=== PATIENT | female | born 1940 | race Caucasian/White ===

== ENCOUNTER → 2017-10-19 | Outpatient (CLI) | payer MEDICARE ==
--- NOTE | 2017-10-19 09:07 | BD ---
EXAMINATION TYPE: Axial Bone Density DATE OF EXAM: 10/19/2017 COMPARISON: DEXA bone scan December 06, 2013 CLINICAL HISTORY: Postmenopausal female Height: 5 FT 10 IN Weight: 214 FRAX RISK QUESTIONS: Family History (Parent hip fracture): YES History of Fracture in Adulthood: YES Secondary Osteoporosis: RISK FACTORS HISTORY OF: Active: YES Postmenopausal woman: AGE 53 Lost more than 2 inches in height since high school: YES MEDICATIONS: Additional Medications: VITAMINS, VIT D , CALTRATE, AMLODIPINE BESYLATE, LOSARTAN, TENORMIN, Additional History: EXAM MEASUREMENTS: Bone mineral densitometry was performed using the [employer]. Bone mineral density as measured about the Lumbar spine is: ----- L1-L4(G/cm2): 1.153 T Score Values are as follows: ----- L2: 0.2 ----- L3: 0.4 ----- L4: -0.9 ----- L1-L4: -0.2 Bone mineral density has: INCREASED 0.5 % since study of: 2013 Bone mineral density about the R hip (g/cm2): 0.644 Bone mineral density about the L hip (g/cm2): 0.716 T Score values are as follows: -----R Neck: -2.8 -----L Neck: -2.3 -----R Total: -2.2 -----L Total: -1.4 Bone mineral density has: DECREASED-3.2 % since study of: 2013 IMPRESSION: Osteoporosis (T Score less than -2.5) at the Femoral neck level in the right hip is now present. There is now increased fracture risk and therapy is usually indicated based on age. Re-Screen 1-2 years. NOTE: T-SCORE=SD OF THE YOUNG ADULT MEAN.
--- NOTE | 2017-10-21 11:38 | MM ---
Reason for exam: screening (asymptomatic). Last mammogram was performed 1 year and 7 months ago. History: Patient is postmenopausal. Physical Findings: A clinical breast exam by your physician is recommended on an annual basis and results should be correlated with mammographic findings. MG 3D Screening Mammo W/Cad Bilateral CC and MLO view(s) were taken. XCCL view(s) were taken of the right breast. Prior study comparison: March 12, 2016, bilateral MG 3d screening mammo w/cad. December 06, 2013, bilateral MG screening mammo w CAD. There are scattered fibroglandular densities. Finding: There is a high density, obscured oval mass in the middle position of the right breast consistent with summation density, confirm with compression. Mole marker left breast. New finding since March 12, 2016 and December 06, 2013. ASSESSMENT: Incomplete: need additional imaging evaluation, BI-RAD 0 RECOMMENDATION: Special view mammogram of the right breast. If lesion persists on supplemental views, image directed ultrasound is recommended. [facility] will attempt to contact patient to return for supplemental views and ultrasound if indicated.
== END | disposition home or self-care (01) ==
LOC: RADMAMWWP 07:21
PROVIDERS: ATTEND Internal Medicine
DX: Z12.31 Encounter for screening mammogram for malignant neoplasm of breast (principal); M81.0 Age-related osteoporosis without current pathological fracture; Z78.0 Asymptomatic menopausal state
CPT/HCPCS: 77063; 77067; 77080

== ENCOUNTER → 2017-10-28 | Outpatient (CLI) | payer MEDICARE ==
--- NOTE | 2017-10-28 09:19 | MM ---
Reason for exam: additional evaluation requested from abnormal screening. Last mammogram was performed less than 1 month ago. History: Patient is postmenopausal. Physical Findings: Nurse did not find any significant physical abnormalities on exam. MG 3D Work Up W/Cad RT CC, MLO, and ML view(s) were taken of the right breast. Prior study comparison: October 19, 2017, bilateral MG 3d screening mammo w/cad. March 12, 2016, bilateral MG 3d screening mammo w/cad. There are scattered fibroglandular densities. There is no discrete abnormality including area of concern. These results were verbally communicated with the patient and result sheet given to the patient on 10/28/17. ASSESSMENT: Probably benign, BI-RAD 3 RECOMMENDATION: Follow-up diagnostic mammogram of the right breast in 6 months.
== END | disposition home or self-care (01) ==
LOC: RADMAMWWP 08:45
PROVIDERS: ATTEND Internal Medicine
DX: R92.8 Other abnormal and inconclusive findings on diagnostic imaging of breast (principal)
CPT/HCPCS: 77065; G0279; 77061

== ENCOUNTER 2018-03-23 11:46 | Emergency (ER) | payer MEDICARE ==
[2018-03-23 11:57] VITALS: RESP 18
[2018-03-23] MEDS ORDERED: LIDOCAINE 1% INJ 10MG/ML (20 ML MDV) SQ ONE (12:47)
[2018-03-23] MEDS ORDERED: DIPH,PERTUS(ACELL)TETVAC-LF 0.5 ML VIAL IM ONE (12:48)
--- NOTE | 2018-03-23 13:36 | ED ---
Wound/Laceration HPI - General Chief Complaint: Wound/Laceration Stated Complaint: Fall, bleeding on face Time Seen by Provider: 03/23/18 12:24 Source: patient Mode of arrival: ambulatory Limitations: no limitations - History of Present Illness Initial Comments: 77-year-old female with past medical history of hypertension presenting today for chief complaint of fall. Patient states that 11:30AM this morning she left the [employer] store when the [employer] elvira had left his list down from unloading packages, she states she thought she cleared the left however her toe caught the end of it and she fell forward landing mostly on her face, she states she did brace to fall somewhat with her arms. Patient states that the outside of her nose was bleeding, she denies having a nosebleed from the nares or coughing up blood. Patient denies any loss of consciousness, injury to chest or back, use of blood thinners or neck pain. Patient denies any current pain in the upper extremities at the wrist elbow or shoulder, pain of LE b/l, headache, diplopia, visual changes, vision loss, muscle weakness, paresthesias, loss sensation, T abnormalities or any other associated symptoms this time. Patient does state her nose feels appear swollen, and there is a small laceration on the bridge. Patient is not sure last tetanus. Patient denies any chest pain, shortness breath, dizziness, palpitations prior to falling stating it was mechanical in nature, positive her toe caught the ledge of the ramp. Remainder of ROS (-). Upon arrival pt is well appearing, ambulating without difficulty. VS within acceptable limits. - Related Data Home Medications Medication Instructions Recorded Confirmed Atenolol [Tenormin] 50 mg PO DAILY 06/15/14 03/23/18 Calcium Carbonate/Vitamin D3 1 tab PO BID 06/15/14 03/23/18 [Caltrate 600 + D Tablet] Multivit-Minerals/Folic Acid [One 1 tab PO DAILY 06/15/14 03/23/18 Daily Womens 50 Plus Tab] amLODIPine BESYLATE [Norvasc] 10 mg PO DAILY 06/15/14 03/23/18 Alendronate Sodium [Fosamax] 70 mg PO Q7D 03/23/18 03/23/18 Losartan Potassium 100 mg PO DAILY 03/23/18 03/23/18 Previous Rx's Medication Instructions Recorded Cephalexin [Keflex] 500 mg PO Q8HR 7 Days #21 cap 03/23/18 Allergies Allergy/AdvReac Type Severity Reaction Status Date / Time No Known Allergies Allergy Verified 03/23/18 12:47 Review of Systems ROS Statement: Those systems with pertinent positive or pertinent negative responses have been documented in the HPI. ROS Other: All systems not noted in ROS Statement are negative. Constitutional: Denies: fever, chills Eyes: Denies: eye pain, vision change ENT: Reports: other (pain of nasal bone). Denies: ear pain, throat pain Respiratory: Denies: cough, dyspnea, wheezes, hemoptysis, stridor Cardiovascular: Denies: chest pain, palpitations, dyspnea on exertion Gastrointestinal: Denies: abdominal pain, nausea, vomiting, diarrhea, constipation, hematemesis Genitourinary: Denies: urgency, dysuria Musculoskeletal: Denies: back pain, arthralgia Skin: Reports: lesions (3/4cm laceration of the nasal bridge). Denies: rash Past Medical History Past Medical History: Hypertension History of Any Multi-Drug Resistant Organisms: None Reported Past Surgical History: Cholecystectomy, Hysterectomy Additional Past Surgical History / Comment(s): D&C Past Psychological History: No Psychological Hx Reported Smoking Status: Never smoker Past Alcohol Use History: None Reported Past Drug Use History: None Reported General Exam - General Exam Comments Initial Comments: General: The patient is awake and alert, in no distress, and does not appear acutely ill. Well-appearing, pleasant. Eye: Pupils are equal, round and reactive to light, extra-ocular movements are intact, no pain with EOM. No limitations on EOM or conjugate gaze. No nystagmus. There is normal conjunctiva bilaterally. No signs of icterus. Ears, nose, mouth and throat: There are moist mucous membranes and no oral lesions. No bleeding upon inspection of the oropharynx. Uvula midline. There is no noted septal deviation or septal hematoma noted, small amount of dried blood at tip of nare. No active epistaxis. No flattening of the nasal bridge/folds. There are superficial abrasions over nose/face. No pain to palpation of orbits, no palpable defect of orbits. Neck: The neck is supple, there is no tenderness or JVD. No pain midline or paravertebral to a patient of the cervical spine. Patient is able to fully flex , extend, lateral flex and rotate at the C-spine. Cardiovascular: There is a regular rate and rhythm. No murmur, rub or gallop is appreciated. Respiratory: Lungs are clear to auscultation, respirations are non-labored, breath sounds are equal. No wheezes, stridor, rales, or rhonchi. Gastrointestinal: Soft, non-distended, non-tender abdomen without masses or organomegaly noted. There is no rebound or guarding present. No CVA tenderness. Bowel sounds are unremarkable. Musculoskeletal: Normal ROM of the UE living at the shoulders, elbows and wrists bilaterally, no tenderness to palpation. Strength 5/5. Sensation intact of the upper extremities and lower extremities. Radial pulses equal bilaterally 2+. Neurological: A&O x 3. CN II-XII intact, There are no obvious motor or sensory deficits. Coordination appears grossly intact. Speech is normal. No pronator drift. Skin: Skin is warm and dry and no rashes. 3/4cm laceration without exposure of underlying structure of the left side of nasal bridge-superficial. Psychiatric: Cooperative, appropriate mood & affect, normal judgment. Limitations: no limitations Course Vital Signs 03/23/18 03/23/18 11:54 14:27 Temperature 97.7 F 98.0 F Pulse Rate 67 57 L Respiratory 18 18 Rate Blood Pressure 201/98 176/90 O2 Sat by Pulse 96 97 Oximetry Procedures - Laceration Laceration #1 Consent Obtained: verbal consent Time Out Performed: Yes Indication: laceration Site: face (nose) Size (cm): 1 Description: linear Depth: simple, single layer Anesthetic Used: lidocaine 1% Anesthesia Technique: local infiltration Amount (mls): 1 Pre-repair: wound explored, irrigated extensively, deep structures intact Type of Sutures: nylon Size of Sutures: 6-0 Number of Sutures: 1 Technique: simple, interrupted Patient Tolerated Procedure: well, no complications Additional Comments: irrigated using sterile water and cleansed with iodine prior to wound repair, sterile field/methods used for approximation of wound edges. Medical Decision Making - Medical Decision Making CT brain cspine (-), no focal neurological deficits. Patient denies any pain in the extremities to palpation. Laceration of nose repaired. There was noted several fracture of the right nasal bone on CT of the facial bones. She was given keflec to be taken twice daily for 7 days for laceration with nasal fracture. Patient is to follow-up with primary care provider one to 2 days. Patient is requesting discharge. This I do feel patient is stable for discharge with primary care follow-up. As well as return in 5 days for suture removal. Her care was discussed with patient as well as return parameters. Patient verbalized understanding, patient was discharged in stable condition after discussing the case in detail with Dr. Montero. Pt tdap updated. Disposition Clinical Impression: Nasal bone fracture, Laceration of nose, Fall Disposition: HOME SELF-CARE Condition: Good Instructions: Care For Your Stitches (ED), Nasal Fracture (ED) Additional Instructions: Please use medication as discussed. Please follow-up with family doctor in the next 2 days. Please return for suture removal in 5 days. Please return to emergency room if the symptoms increase or worsen or for any other concerns, as discussed. Prescriptions: Cephalexin [Keflex] 500 mg PO Q8HR 7 Days #21 cap Is patient prescribed a controlled substance at d/c from ED?: No Referrals: Tor Campbell MD [Primary Care Provider] - 1-2 days Time of Disposition: 14:42
[2018-03-23 14:29] VITALS: BP 176/90; PULSE 57; TEMP 98
--- NOTE | 2018-03-23 14:34 | CT ---
EXAMINATION TYPE: CT brain arvind li DATE OF EXAM: 03/23/2018 COMPARISON: None HISTORY: Fall, no LOC. Frontal and nasal bridge injury. CT DLP: 1361.5 mGycm, Automated exposure control for dose reduction was used. CONTRAST: Patient injected with 0 mL of Isovue 300. CT of the brain is performed utilizing 3 mm thick sections through the posterior fossa and 3 mm thick sections through the remaining calvarium. Study is performed within 24 hours of arrival to the hospital. No abnormal hyperdensity is present to suggest an acute intracranial hemorrhage. No mass lesion is evident. No acute infarcts are evident. Periventricular white matter hypodensity is present, likely on the ba sis of chronic white matter ischemic changes. Ventricles and sulci are appropriate for the patient age. Right septal deviation is present. Mild mu cosal thickening is through scattered ethmoid air cells. Remaining Paranasal sinuses and mastoid air cells within the [id number] are clear. IMPRESSIONS: 1. Atrophy with periventricular white matter ischemic changes. CT cervical spine. COMPARISON: None CT of the cervical spine is performed in the axial plane at 2 mm thick sections. Reconstructed image s in the coronal, and sagittal plane are reviewed on the computer. No acute fractures are evident. Vertebral body alignment is normal. Narrowing of the C5-6 disc height. Posterior endplate spurring is present. Mild foraminal narrowing f rom uncovertebral joint hypertrophy is present. Milder degenerative changes are present C6-7. Vertebral body heights are preserved. No spinal canal stenosis is evident. IMPRESSIONS: 1. No acute osseous abnormality. 2. Degenerative changes predominantly C5-6.
--- NOTE | 2018-03-23 14:37 | CT ---
EXAMINATION TYPE: CT facial bones wo con DATE OF EXAM: 03/23/2018 COMPARISON: None HISTORY: Fall, no LOC. Frontal and nasal bridge injury. CT DLP: 1361.5 mGycm CONTRAST: 0 mL of Isovue 300 The paranasal sinuses are examined in the axial plane at 2 mm thick sections. Reconstructed images i n the coronal plane were obtained. Patient has dentures. Maxillary spine is intact. There is a very subtle nasal bone fracture along the right inferior aspect of the nasal bone. Series 205, image 41. No additional fractures are evident. The maxillary sinuses are clear. There are scattered mucosal thickening through ethmoid air cells. The sphenoid sinuses are clear. There is mild mucosal thickening within the inferior posterior right frontal sinuses. Some overlying soft tissue swelling over the frontal region is present. Some minima l subcutaneous air is in the mid forehead region. The septum is evaluated. There is marked septal deviation to the right. A right septal spur is prese nt. Left mahendra bullosa is present.. The ostiomeatal units are patent. IMPRESSIONS: 1. Subtle fracture right nasal bone. 2. Overlying soft tissue. 3. Mucosal thickening within ethmoid air cells and posterior right frontal sinus
[2018-03-23] MEDS ORDERED: CEPHALEXIN 500 MG CAP PO STA (14:41)
== END 2018-03-23 14:51 | disposition home or self-care (01) ==
LOC: EC 11:46
DX: S02.2XXA Fracture of nasal bones, initial encounter for closed fracture (principal); S01.21XA Laceration without foreign body of nose, initial encounter; I10 Essential (primary) hypertension; Z23 Encounter for immunization; Z90.49 Acquired absence of other specified parts of digestive tract; Z90.710 Acquired absence of both cervix and uterus; Z79.899 Other long term (current) drug therapy; W01.10XA Fall on same level from slipping, tripping and stumbling with subsequent striking against unspecified object, initial encounter; Y92.512 Supermarket, store or market as the place of occurrence of the external cause
CPT/HCPCS: 72125; 70486; 70450; 90715; 99283; 12011; 90471; J2001

== ENCOUNTER 2018-12-03 17:32 | Inpatient (IN) | payer MEDICARE ==
[2018-12-03] MEDS ORDERED: MORPHINE SULFATE 4 MG/ML SYRINGE IM STA (17:57)
--- NOTE | 2018-12-03 18:40 | XR ---
EXAMINATION TYPE: XR wrist complete RT, XR hand complete RT DATE OF EXAM: 12/03/2018 CLINICAL HISTORY: Pain after fall injury today. TECHNIQUE: Frontal, lateral and oblique images of the right hand and wrist are obtained. Fourth scap hoid view right wrist is acquired. COMPARISON: None FINDINGS: Osseous structures are demineralized which is noted lower radiographic sensitivity. Acute c omminuted impacted intra-articular fracture distal radial meta-epiphysis is present. Adjacent ulna is intact. A 2 mm well-defined ossific fragment radial aspect distal radius is favored old. Mild to mod erate narrowing of base of first metacarpal incidentally noted. Overlying soft tissue is unremarkable . Images of the right hand show no definitive additional acute fracture or dislocation distally. Mild n arrowing throughout the phalanges is present involving PIP and DIP joints. Overlying soft tissues are unremarkable. IMPRESSION: There is acute comminuted minimally displaced intra-articular fracture distal radial met a-epiphysis. (Initial encounter closed type posttraumatic fracture)
--- NOTE | 2018-12-03 18:43 | XR ---
EXAMINATION TYPE: XR Hip RT and AP Pelvis DATE OF EXAM: 12/03/2018 COMPARISON: NONE HISTORY: Fall injury with pain. TECHNIQUE: A single AP view of the pelvis is obtained. Two views of the right hip are obtained. FINDINGS: Osseous structures are demineralized. There is no acute fracture/dislocation evident in th e pelvis. The sacroiliac joints appear symmetric and unremarkable. [id number] axial joint spac e loss in both hips is seen. The overlying soft tissue appears unremarkable. Two views of right hip show acute minimally displaced transcervical fracture right proximal femur wit h cortical disruption medially. The overlying soft tissue is unremarkable. IMPRESSION: There is acute minimally displaced transcervical fracture mid neck level right proximal femur. (Initial encounter closed type posttraumatic fracture)
[2018-12-03] MEDS ORDERED: MORPHINE SULFATE 4 MG/ML SYRINGE IVP STA (18:48)
--- NOTE | 2018-12-03 18:52 | ED ---
Fall HPI - General Chief Complaint: Fall Stated Complaint: fall Time Seen by Provider: 12/03/18 17:37 Source: patient, EMS, RN notes reviewed, old records reviewed Mode of arrival: EMS - History of Present Illness Initial Comments: Patient is a 77-year-old female with history of hypertension. She presents emergency department today after she fell. She reports she walked into the edge of her garage door hitting her head. She reports she fell backward onto her right hip and right wrist to catch her fall. Patient states that she was not able to ambulate afterwards and EMS was called. Patient states that she did not lose consciousness. She is not on any blood thinners. She denies any neck pain. She went to the minor headache, wrist pain and hip pain. Patient ports a history of fracture of her humerus few years ago that was treated [facility] as well as a rotator cuff injury. Patient states that she has no chest pain or abdominal pain at this time. She did not feel dizzy prior to her fall. - Related Data Home Medications Medication Instructions Recorded Confirmed Atenolol [Tenormin] 50 mg PO DAILY 06/15/14 03/23/18 Calcium Carbonate/Vitamin D3 1 tab PO BID 06/15/14 03/23/18 [Caltrate 600 + D Tablet] Multivit-Minerals/Folic Acid [One 1 tab PO DAILY 06/15/14 03/23/18 Daily Womens 50 Plus Tab] amLODIPine BESYLATE [Norvasc] 10 mg PO DAILY 06/15/14 03/23/18 Alendronate Sodium [Fosamax] 70 mg PO Q7D 03/23/18 03/23/18 Losartan Potassium 100 mg PO DAILY 03/23/18 03/23/18 Previous Rx's Medication Instructions Recorded Cephalexin [Keflex] 500 mg PO Q8HR 7 Days #21 cap 03/23/18 Allergies Allergy/AdvReac Type Severity Reaction Status Date / Time No Known Allergies Allergy Verified 12/03/18 17:41 Review of Systems ROS Statement: Those systems with pertinent positive or pertinent negative responses have been documented in the HPI. ROS Other: All systems not noted in ROS Statement are negative. Past Medical History Past Medical History: Hypertension History of Any Multi-Drug Resistant Organisms: None Reported Past Surgical History: Cholecystectomy, Hysterectomy Additional Past Surgical History / Comment(s): D&C Past Psychological History: No Psychological Hx Reported Smoking Status: Never smoker Past Alcohol Use History: None Reported Past Drug Use History: None Reported General Exam - General Exam Comments Initial Comments: 77-year-old female. Alert and oriented 3. No significant distress. Limitations: no limitations General appearance: alert, in no apparent distress Head exam: Present: atraumatic, normocephalic, normal inspection Eye exam: Present: normal appearance, PERRL, EOMI. Absent: scleral icterus, conjunctival injection, periorbital swelling ENT exam: Present: normal exam, mucous membranes moist Neck exam: Present: normal inspection. Absent: tenderness, meningismus, lymphadenopathy Respiratory exam: Present: normal lung sounds bilaterally. Absent: respiratory distress, wheezes, rales, rhonchi, stridor Cardiovascular Exam: Present: regular rate, normal rhythm, normal heart sounds. Absent: systolic murmur, diastolic murmur, rubs, gallop, clicks GI/Abdominal exam: Present: soft, normal bowel sounds. Absent: distended, tenderness, guarding, rebound, rigid Right Forearm Wrist exam: Present: tenderness, swelling (Assessment tenderness and swelling over the distal radius. Evidence of deformity.). Absent: normal inspection, full ROM Hand Wrist exam: Present: tenderness. Absent: normal inspection, full ROM Right Hip exam: Present: external rotation, shortening. Absent: normal inspection, full ROM (Patient is unable to perform any range of motion of the hip. Evidence of external rotation and shortening.) Lower Leg exam: Present: normal inspection, full ROM Foot/Toe exam: Present: normal inspection, full ROM Neurovascular tendon exam: Present: no vascular compromise Neurological exam: Present: alert, oriented X3, CN II-XII intact Psychiatric exam: Present: normal affect, normal mood Course Vital Signs 12/03/18 17:36 Temperature 98.1 F Pulse Rate 60 Respiratory 18 Rate Blood Pressure 163/92 O2 Sat by Pulse 94 L Oximetry Procedures - Orthopedic Splinting/Casting Injury #1 Side: right Upper Extremity Injury Location: wrist Upper Extremity Immobilizer: volar splint, Jesús wrap, synthetic pre-padded splint Additional Comments: is reevaluated neurovascularly intact. Medical Decision Making - Medical Decision Making Is a 77-year-old female history of hypertension. She reports that she fell to day after hitting her head on her garage door falling on her right hip and wrist. She has evidence of a right radial fracture with intra-articular involvement. She is placed in a volar splint. She was reevaluated and neurovascularly intact. She also has evidence of a right hip fracture. Surgica l clearance was obtained getting IV established and blood work completed. EKG was reviewed. She is unable to the nurse. Dr. MIRANDA and discussed case with Dr. Good. We will have sounds physician for consult. - Lab Data Result diagrams: 12/03/18 18:51 Lab Results 12/03/18 12/03/18 Range/Units 18:51 18:51 WBC 11.4 H (3.8-10.6) k/uL RBC 4.75 (3.80-5.40) m/uL Hgb 13.8 (11.4-16.0) gm/dL Hct 44.5 (34.0-46.0) % MCV 93.8 (80.0-100.0) fL MCH 29.1 (25.0-35.0) pg MCHC 31.0 (31.0-37.0) g/dL RDW 13.8 (11.5-15.5) % Plt Count 161 (150-450) k/uL Neutrophils % 78 % Lymphocytes % 14 % Monocytes % 5 % Eosinophils % 2 % Basophils % 0 % Neutrophils # 8.9 H (1.3-7.7) k/uL Lymphocytes # 1.6 (1.0-4.8) k/uL Monocytes # 0.6 (0-1.0) k/uL Eosinophils # 0.2 (0-0.7) k/uL Basophils # 0.0 (0-0.2) k/uL Blood Type Recheck CABO Indicated Spec Expiration Date 12/06/2018 - 235012/03/18 19:11 EKG shows normal sinus rhythm RSR QR pattern suggesting right ventricular conduction delay. Left ventricular hypertrophy, T wave abnormality consider anterior ischemia. Abnormal EKG noted. Ventricular rate of 65 bpm. Intervals 192 ms. QRS duration is 122 ms. QT QTc is 4:30/455 ms. - Radiology Data Radiology results: report reviewed Chest x-ray shows cardiomegaly without acute cardiopulmonary process. Right wrist x-ray shows acute comminuted minimally displaced intra-articular fracture of the distal radial metaepiphysis. Hip x-ray shows evidence of acute minimally displaced transcervical fracture of the mid neck level right proximal femur. CT of the brain shows no acute intracranial hemorrhage or midline shift. Moderate diffuse age related cervical atrophy and chronic small vessel ischemic change redemonstrated. Disposition Clinical Impression: Fall, Wrist fracture, right, Hip fracture, right Disposition: ADMITTED IP TO THIS HOSP Condition: Stable Is patient prescribed a controlled substance at d/c from ED?: No Referrals: Tor Campbell MD [Primary Care Provider] - 1-2 days Time of Disposition: 19:17
--- NOTE | 2018-12-03 18:56 | CT ---
EXAMINATION TYPE: CT brain wo con DATE OF EXAM: 12/03/2018 HISTORY: fall injury with headache. CT DLP: 1012 mGycm. Automated Exposure Control for Dose Reduction was Utilized. TECHNIQUE: CT scan of the head is performed without contrast. COMPARISON: CT brain March 23, 2018. FINDINGS: There is no acute intracranial hemorrhage or midline shift identified. There is diffuse v entricular and sulcal prominence consistent with diffuse age-related cerebral atrophy. There is low- attenuation in the periventricular white matter consistent with chronic small vessel ischemic change. The globes are intact and the visualized sinuses are clear. . Tissue density left extra auditory ca nal is felt to reflect cerumen similar to prior vascular calcification distal internal carotid arteri es. The calvarium is intact. IMPRESSION: No acute intracranial hemorrhage or midline shift. There is moderate diffuse age-relate d cerebral atrophy and chronic small vessel ischemic change redemonstrated.
--- NOTE | 2018-12-03 18:57 | XR ---
EXAMINATION TYPE: XR chest 1V DATE OF EXAM: 12/03/2018 COMPARISON: Chest x-ray June 15, 2014 HISTORY: Pain after fall injury today. TECHNIQUE: Single frontal view of the chest is obtained. FINDINGS: There is chronic parenchymal changes without suspicious focal air space opacity, pleural e ffusion, or pneumothorax seen. The cardiac silhouette size is enlarged. Overlying bra strap is prese nt. The osseous structures are demineralized. Old fracture right posterior sixth rib is felt presen t. IMPRESSION: Cardiomegaly without acute pulmonary process.
[2018-12-03 19:05] LABS: Basophils % (A) 0 %; Eosinophils # (A) 0.2 k/uL (0-0.7); Eosinophils % (A) 2 %; HCT 44.5 % (34.0-46.0); HGB 13.8 gm/dL (11.4-16.0); Lymphocytes # (A) 1.6 k/uL (1.0-4.8); Lymphocytes % (A) 14 %; MCH 29.1 pg (25.0-35.0); MCV 93.8 fL (80.0-100.0); Mean Platelet Volume 7.1; Monocytes # (A) 0.6 k/uL (0-1.0); Monocytes % (A) 5 %; Neutrophils # (A) 8.9 k/uL (1.3-7.7); Neutrophils % (A) 78 %; Platelet Count 161 k/uL (150-450); RBC 4.75 m/uL (3.80-5.40); RDW 13.8 % (11.5-15.5); WBC 11.4 k/uL (3.8-10.6)
[2018-12-03 19:15] LABS: INR 0.9 (<1.2); Prothrombin Time 9.9 sec (9.0-12.0)
[2018-12-03] MEDS ORDERED: MORPHINE SULFATE 4 MG/ML SYRINGE IV PRN (19:17)
[2018-12-03] MEDS ORDERED: NALOXONE 0.4 MG/ML 1 ML VIAL IV PRN (19:17)
[2018-12-03] MEDS ORDERED: IBUPROFEN 400 MG TAB PO PRN (19:17)
[2018-12-03] MEDS ORDERED: ACETAMINOPHEN TAB 325 MG TAB PO PRN (19:17)
[2018-12-03 19:20] LABS: Albumin 4.5 g/dL (3.5-5.0); Calcium 10.1 mg/dL (8.4-10.2); Potassium 3.9 mmol/L (3.5-5.1); Total Bilirubin 0.4 mg/dL (0.2-1.3); Total Protein 7.8 g/dL (6.3-8.2)
[2018-12-03 19:43] LABS: Appearance,Urine Clear (Clear); Bilirubin,Urine Negative (Negative); Blood,Urine Negative (Negative); Color,Urine Yellow; Glucose,Urine (UA) Negative (Negative); Ketones,Urine Negative (Negative); Leukocyte Esterase,Urine Negative (Negative); Nitrite,Urine Negative (Negative); Protein,Urine Negative (Negative); Specific Gravity,Urine 1.015 (1.001-1.035); Urobilinogen,Urine <2.0 mg/dL (<2.0)
[2018-12-03] MEDS: SODIUM CHLORIDE 0.9% 1,000 ML IV SCH (20:33)
[2018-12-03 20:44] VITALS: BMI 29.8
--- NOTE | 2018-12-03 21:57 | P.CONS ---
History of Present Illness - Reason for Consult Consult date: 12/03/18 pre op clearance Requesting physician: Lee Asif - Chief Complaint pain wrist and hip after a fall - History of Present Illness 77 year old female with history of hypertension patient at her baseline status of health, she was planning on grilling this evening, when she went to her garage, and hit the edge of the garage door with her forehead and fell backward , hit her hip on the right side, with her right upper extremity stretched to catch her fall. she denies any loss of consciousness, open wounds, nausea or vomiting. she could not get up and stayed on the floor for 30 min until her neighbour found her made phone calls to notify family who called 911 to bring her to the hospital where she was found to have right wrist fracture and right hip fracture. CT brain showed no acute process. medicine consulted for medical management and pre op clearance patient denies any history of CHF, arrhythmia, recent IA, syncope, stroke, or seizures. patient had surgeries in the past with no complications. patient takes BP meds. denies taking any blood thinners, or aspirin. currently reports pain well controlled, denies any numbness or tingling in her right upper or lower extremities. denies any chest pain or trouble breathing at this time. Review of Systems Pertinent positives as noted in HPI. All other systems were reviewed and are negative Past Medical History Past Medical History: Hypertension History of Any Multi-Drug Resistant Organisms: None Reported Past Surgical History: Cholecystectomy, Hysterectomy Additional Past Surgical History / Comment(s): D&C Past Psychological History: No Psychological Hx Reported Smoking Status: Never smoker Past Alcohol Use History: None Reported Past Drug Use History: None Reported - Past Family History family Family Medical History: No Reported History Medications and Allergies Home Medications Medication Instructions Recorded Confirmed Type Atenolol [Tenormin] 50 mg PO DAILY 06/15/14 12/03/18 History Calcium Carbonate/Vitamin D3 1 tab PO BID 06/15/14 12/03/18 History [Caltrate 600 + D Tablet] Multivit-Minerals/Folic Acid [One 1 tab PO DAILY 06/15/14 12/03/18 History Daily Womens 50 Plus Tab] amLODIPine BESYLATE [Norvasc] 10 mg PO DAILY 06/15/14 12/03/18 History Alendronate Sodium [Fosamax] 70 mg PO MO 03/23/18 12/03/18 History Losartan Potassium 100 mg PO DAILY 03/23/18 12/03/18 History Allergies Allergy/AdvReac Type Severity Reaction Status Date / Time No Known Allergies Allergy Verified 12/03/18 19:41 Physical Exam Vitals: Vital Signs Temp Pulse Pulse Resp BP BP Pulse Ox 12/03/18 21:10 97.8 F 67 20 168/79 92 L 12/03/18 19:55 65 18 156/82 97 12/03/18 19:28 67 18 175/79 92 L 12/03/18 17:36 98.1 F 60 18 163/92 94 L Intake and Output 12/03/18 12/03/18 12/03/18 06:59 14:59 22:59 Other: Voiding Method Indwelling Catheter Weight 99.79 kg Constitutional: No acute distress, conversant, pleasant Eyes: Anicteric sclerae, moist conjunctiva, no lid-lag Pupils equal round reactive to light ENMT: NC/AT Oropharynx clear, no erythema, or exudates Neck: Supple, FROM, no masses, or JVD No carotid bruits No thyromegaly Lungs: Clear to auscultation Clear to percussion Normal respiratory effort, no accessory muscle use Cardiovascular: Heart regular in rate and rhythm, positive S4 sound No murmurs, gallops, or rubs No peripheral edema Abdominal: Soft Nontender, no guarding, rebound or rigidity Abdomen moving with respiration Normoactive bowel sounds No hepatomegaly, No splenomegaly No palpable mass No abdominal wall hernia noted Skin: Normal temperature, tone, texture, turgor No induration No subcutaneous nodules No rash, lesions No ulcers Extremities: right upper extremity with splint , capillary refill immediate in right fingers and toes no numbness or tingling No digital cyanosis No clubbing Pedal pulses intact and symmetrical Radial pulses intact and symmetrical No calf tenderness Psychiatric: Alert and oriented to person, place and time Appropriate affect fair judgment Neuro Muscles Strength 5/5 in all 4 extremities limited exam over right upper and lower extremity due to pain secondary to fracture Sensation to light touch grossly present throughout Cranial nerves II-XII grossly intact No focal sensory deficits Lymphatics: no palpable cervical or supraclavicular , or inguinal lymph nodes Results CBC & Chem 7: 12/03/18 18:51 12/03/18 18:51 Labs: Abnormal Lab Results - Last 24 Hours (Table) 12/03/18 12/03/18 Range/Units 18:51 18:51 WBC 11.4 H (3.8-10.6) k/uL Neutrophils # 8.9 H (1.3-7.7) k/uL BUN 21 H (7-17) mg/dL Glucose 125 H (74-99) mg/dL AST 40 H (14-36) U/L Assessment and Plan Assessment: patient is 77 year old Male/Female, presented after a fall found to have fracture of the right distal radius and right hip. medicine consulted or medical management and pre op medical clearance. Patient denies any recent history or symptoms of congestive heart failure, myocardial infarction, syncope, arrhythmia, palpitation, or exertional dyspnea. Patient denies any past medical history of stroke, CAD, CHF, CKD, or DM. Patient is functional at baseline at >4 METs she is able to climb one or two flight of stairs with no limitations, she is able to perform house chores. Patient labs reviewed, EKG showed NSR, and features suggestive of LVH. Patient is scheduled for orthopedic surgery to fix right hip and radius fracture. This is of moderate risk, however, patient has no medical risk factors from her past medical history. Patient can proceed to surgery with low-moderate but acceptable perioperative cardiovascular risk factors. This has been explained to the patient , all questions answered, patient verbalized understanding and agreement. Plan: hypertension controlled continue amlodipine and tenormin hold losartan (resume POD #1) right distal radius and hip fracture 2/2 fall management per ortho pain control and DVT PPX per ortho follow up labs post op patient is full code Thank you for allowing us to participate in the care of this patient. Do not hesitate to contact us with questions. Someone can be reached from the [facility] hospitalist group at all hours of the day at [phone].
[2018-12-04] MEDS: SODIUM CHLORIDE 0.9% 1,000 ML IV SCH ×2 (06:09→17:26)
[2018-12-04] MEDS: MORPHINE SULFATE 4 MG/ML SYRINGE IV PRN ×4 (07:07→22:36)
--- NOTE | 2018-12-04 08:47 | P.HPOR ---
History of Present Illness H&P Date: 12/03/18 Chief Complaint: Right hip and wrist fractures status post fall The patient is a pleasant 77-year old female who injured her right wrist and hip in a fall earlier today. She was walking out of her garage and didn't realize the door hadn't gone all the way up and she struck her head and fell backwards onto her right hip and wrist. She felt pain in the hip and was unable to get up. She was brought by EMS to the emergency department where x-rays revealed right femoral neck and right distal radius fractures. She denies loss of consciousness or headache. She localizes the pain to the hip and wrist and denies other injuries. She denies antecedent hip pain. She normally ambulates without the use of assist devices. She lives independently and cares for a wheelchair-bound son at home. She denies past medical history of diabetes, cardiovascular or kidney disease. She has never smoked. Past Medical History Past Medical History: Hypertension History of Any Multi-Drug Resistant Organisms: None Reported Past Surgical History: Cholecystectomy, Hysterectomy Additional Past Surgical History / Comment(s): D&C Past Psychological History: No Psychological Hx Reported Smoking Status: Never smoker Past Alcohol Use History: None Reported Past Drug Use History: None Reported - Past Family History family Family Medical History: No Reported History Medications and Allergies Home Medications Medication Instructions Recorded Confirmed Type Atenolol [Tenormin] 50 mg PO DAILY 06/15/14 12/03/18 History Calcium Carbonate/Vitamin D3 1 tab PO BID 06/15/14 12/03/18 History [Caltrate 600 + D Tablet] Multivit-Minerals/Folic Acid [One 1 tab PO DAILY 06/15/14 12/03/18 History Daily Womens 50 Plus Tab] amLODIPine BESYLATE [Norvasc] 10 mg PO DAILY 06/15/14 12/03/18 History Alendronate Sodium [Fosamax] 70 mg PO MO 03/23/18 12/03/18 History Losartan Potassium 100 mg PO DAILY 03/23/18 12/03/18 History Allergies Allergy/AdvReac Type Severity Reaction Status Date / Time No Known Allergies Allergy Verified 12/03/18 19:41 Physical Examination HEENT: Normocephalic without ecchymosis or laceration. Note is made of lateral tracking of the left eye. Patient states this is baseline and has had a "lazy eye" for years. Cardiovascular: Regular rate and rhythm. Pulmonary: No audible wheeze or conversational dyspnea Abdomen: Soft & nontender Musculoskeletal - Right hip: No erythema, ecchymosis or abrasions. The right lower extremity is not significantly shortened or rotated. She demonstrates pain minimal pain with logroll but substantial pain with passive circumduction. There is no tenderness with palpation of the knee, leg, foot or ankle. Light touch sensation is subjectively intact throughout the right leg and is symmetric to the contralateral side. Dorsalis pedis pulses 2+ and the foot is warm dry and well perfused. Splint in place on the right wrist. Mild digital edema. Intact sensation and gross motor to the distal distributions of the radial, median and ulnar nerves. Secondary survey reveals no gross long bone abnormalities or deformities. No t enderness to palpation or passive range of motion of the left lower and left upper extremities. Results X-rays of the pelvis, right hip and right wrist were reviewed and interpreted from an orthopedic standpoint. These demonstrate a mildly displaced transcervical femoral neck fracture. There is widening of the posterior aspect of the fracture on the lateral view. Mild to moderate arthritis is noted in the acetabulum. The wrist shows an extra-articular distal radius fracture with mild shortening and approximately 15 of dorsal angulation. - Labs Labs: Abnormal Lab Results - Last 24 Hours (Table) 12/03/18 12/03/18 Range/Units 18:51 18:51 WBC 11.4 H (3.8-10.6) k/uL Neutrophils # 8.9 H (1.3-7.7) k/uL BUN 21 H (7-17) mg/dL Glucose 125 H (74-99) mg/dL AST 40 H (14-36) U/L H & H 12/03/18 Range/Units 18:51 Hgb 13.8 (11.4-16.0) gm/dL Hct 44.5 (34.0-46.0) % Coagulation 12/03/18 Range/Units 18:51 INR 0.9 (<1.2) Result Diagrams: 12/03/18 18:51 12/03/18 18:51 Assessment and Plan Assessment: I discussed the diagnosis and radiographic findings with the patient. We reviewed the pertinent anatomy and pathophysiology of the injury. We discussed treatment options and I explained the rationale behind surgical intervention. We discussed operative treatment in the form of a hemiarthroplasty. We reviewed the surgical plan. Risks and benefits were reviewed including (but not limited to) the risks of infection, bleeding, blood clots, dislocation, chronic pain and possible need for additional surgery. We specifically discussed the potential for symptomatic arthritis and possible future conversion to a total hip arthroplasty. Questions were invited and answered. The patient expressed understanding and wishes to proceed with surgery. The patient will be kept on bedrest. Continue PRN pain management. NPO after midnight. Recommended also performing a closed reduction and splinting of the distal radius while under sedation. Thank you for allowing me to participate in the care of this patient. Lee Asif D.O. Orthopedic surgeon [facility]
[2018-12-04] MEDS: ATENOLOL 50 MG TAB PO SCH (09:19)
[2018-12-04] MEDS: amLODIPine 10 MG TAB PO SCH (09:19)
[2018-12-04] MEDS: PANTOPRAZOLE 40 MG/10 ML VIAL IV SCH (09:23)
[2018-12-04] MEDS ORDERED: SODIUM CHLORIDE 0.9% 1,000 ML IV ONE ×2 (11:34→13:30)
[2018-12-04] MEDS ORDERED: ALBUMIN HUMAN 5% (12.5gm) 250 ML BOTTLE IVPB ONE (12:01)
[2018-12-04] MEDS ORDERED: KETAMINE 10 MG/ML 20 ML VIAL ONE (12:01)
[2018-12-04] MEDS ORDERED: MIDAZOLAM 2 MG/2 ML VIAL ONE (12:01)
[2018-12-04] MEDS ORDERED: fentaNYL (PF) 50 MCG/ML 2 ML AMP ONE (12:01)
[2018-12-04] MEDS ORDERED: PROPOFOL 10 MG/ML 20 ML VIAL IV ONE (12:01)
[2018-12-04] MEDS ORDERED: ONDANSETRON 4 MG/2 ML VIAL ONE (12:01)
[2018-12-04] MEDS ORDERED: METOPROLOL TARTRATE 5 MG/5 ML VIAL IVP ONE (12:01)
[2018-12-04] MEDS ORDERED: hydrALAZINE HCL 20 MG/ML 1 ML VIAL ONE (12:01)
[2018-12-04] MEDS ORDERED: SODIUM CHLORIDE 0.9% 100 ML with ceFAZolin 2,000 MG IV ONE ×2 (12:31)
[2018-12-04] MEDS ORDERED: LIDOCAINE 1%-EPI 1:100,000 30 ML VIAL INTRAARTIC ONE (13:42)
[2018-12-04] MEDS ORDERED: ROPIVACAINE 5 MG/ML 30 ML VIAL MISCELLANE ONE (13:42)
[2018-12-04 14:07] LABS: HCT 36.9 % (34.0-46.0); HGB 12.4 gm/dL (11.4-16.0); MCH 31.5 pg (25.0-35.0); MCHC 33.7 g/dL (31.0-37.0); MCV 93.4 fL (80.0-100.0); Mean Platelet Volume 8.1; Platelet Count 153 k/uL (150-450); RBC 3.95 m/uL (3.80-5.40); RDW 14.8 % (11.5-15.5); WBC 12.8 k/uL (3.8-10.6)
[2018-12-04] MEDS ORDERED: MAGNESIUM HYDROXIDE 2,400 MG/10 ML CUP PO PRN (15:35)
--- NOTE | 2018-12-04 15:48 | FL ---
EXAMINATION TYPE: FL guidance operating room, XR wrist limited RT DATE OF EXAM: 12/04/2018 CLINICAL HISTORY: Open reduction internal fixation of the right wrist after fracture TECHNIQUE: Fluoroscopy. COMPARISON: None. FINDINGS: Fluoroscopic guidance was provided during procedure performed by Dr. Asif. A total of 9 seconds of fluoroscopic time was utilized during the procedure and 4 spot images was acquired. IMPRESSION: As Above.
--- NOTE | 2018-12-04 16:17 | XR ---
EXAMINATION TYPE: XR Hip Limited RT DATE OF EXAM: 12/04/2018 CLINICAL HISTORY: Right hip pain and osteoarthritis. TECHNIQUE: Single AP portable view of right hip is obtained immediately postoperatively. COMPARISON: None. FINDINGS: Metallic hardware from right hip arthroplasty is seen and appears satisfactory in alignment and position. There is evidence of recent surgery with subcutaneous gas noted laterally. IMPRESSION: Metallic hardware from right hip arthroplasty is satisfactory in position.
[2018-12-04] MEDS ORDERED: ONDANSETRON 4 MG/2 ML VIAL IVP ONE (16:50)
[2018-12-04] MEDS ORDERED: HYDROmorphone 1 MG/ML 1 ML SYRINGE IVP ONE (16:54)
--- NOTE | 2018-12-04 18:06 | P.OP ---
Date of Procedure: 12/04/18 Preoperative Diagnosis: 1. Displaced right transcervical femoral neck fracture 2. Displaced right distal radius fracture Postoperative Diagnosis: 1. Displaced right transcervical femoral neck fracture 2. Displaced right distal radius fracture Procedure(s) Performed: 1. Right hip hemiarthroplasty 2. Exam under anesthesia and manual application of joint stress for radiography by physician - right wrist 3. Closed reduction of right distal radius fracture with application of long arm sugartong splint by physician Implants: [employer] press-fit size 15 stem with a 53 mm unipolar head and +0 taper Anesthesia: local, spinal Surgeon: Lee Asif [employer]let Making Machine Operator #1: Ana Anderson Estimated Blood Loss (ml): 800 Condition: stable Disposition: PACU Indications for Procedure: The patient is a pleasant 77-year-old female who sustained a displaced right femoral neck fracture and right distal radius fracture after a mechanical fall. Surgical treatment was recommended for the hip. Risks and benefits were discussed with the patient, including (but not limited to) the risks of infection, bleeding, injury tendons or neurovascular structures, dislocation, leg length discrepancy, symptomatic arthritis, chronic pain, and possible need f or future surgery. I also recommended performing a closed reduction and splinting of the displaced distal radius fracture while under anesthesia. She expressed understanding and wished to proceed with surgery and closed reduction as discussed. Consent forms were signed. The surgical/procedural sites were confirmed and marked preoperatively. Description of Procedure: The patient was brought to the OR by the anesthesia team. Sedation and spinal anesthesia were administered. She was positioned in the left lateral decubitus position. An axillary roll was placed and all bony prominences were well-padded. Lateral hip padding and a lateral positioner was used. Prophylactic antibiotics were administered. The right lower extremity was then prepped and draped in standard, sterile fashion. A timeout was performed, confirming patient identifiers, the operative side, site and procedure to be performed: all team members expressed agreement. A curvilinear incision was marked over the posterior aspect of the greater trochanter. The skin was sharply incised. Electrocautery was used to dissect the subcutaneous tissue down to the tensor fascia, coagulating perforating v essels as needed. The patient was somewhat hypertensive initially and there was mild, diffuse bleeding from multiple small vessels but no large bleeders. The fascia was sharply incised distally and gluteus fermin was bluntly divided proximally. The subfascial space was bluntly developed. A Charnley retractor was placed and hip was gently internally rotated. The gluteus medius musculature was retracted proximally. The piriformis and short external rotators were identified. These were released from their insertions and tagged for later repair. A large crossing vessel at the superior edge of the quadratus was ligated with silk ties and divided. A T-shaped capsulotomy was made, taking care to protect the labrum. The anterior capsule was gently released with a Ram elevator. The femoral head was still seated within the acetabulum. Passive mobilization of the femur produced gapping at the fracture site. A corkscrew extractor was used to remove the fractured head. A cutting guide was used to make a femoral neck osteotomy while the femoral head was being sized on the back table. The diameter of the acetabulum was sized and a 53 mm head was selected. The acetabulum was examined. No obvious, full- thickness cartilage defects were identified. The labrum was intact. Thickened pulvinar tissue was resected with a ronguer. A box osteotomy was performed. The femur was prepared by lateralizing, reaming and broaching up to a size 15 stem. The trial head was attached and the hip was reduced. This demonstrated good motion and excellent stability. The hip was again dislocated and the trial components were removed. The femur was copiously irrigated with pulse lavage. The porous-coated, press- fit stem was inserted with appropriate anteversion and gently impacted into place. No fractures around the calcar were identified. A 53 mm endo head was selected and impacted onto a clean, dry trunnion. The hip was reduced and showed good stability, range of motion and leg length. The joint was thoroughly irrigated with normal saline. The capsule was repaired with #1 Vicryl suture after final deep irrigation. The piriformis and short external rotators were repaired with #5 Ethibond suture. The tensor fascia was closed with interrupted #1 Vicryl suture followed by a running, barbed suture. The subcutaneous tissues were closed in layers with 0 Vicryl & 2-0 Vicryl. The skin incision was closed with a running, barbed subcuticular stitch. Local anesthetic with epinephrine was injected into the subcutaneous tissues for postoperative pain control and hemostasis. A dermal adhesive and sterile dressing were applied. All sponge, needle and instrument counts were correct at the end of the case. The patient tolerated the procedure well. An abductor pillow was placed. Attention was then turned to the wrist. The patient was repositioned supine to address the distal radius. A time out was again performed to confirm the procedure. The fracture was assessed from multiple views with intraoperative fluoroscopy. There was mild loss of radial height and moderate persistent dorsal angulation. Dynamic examination revealed no gross instability of the carpus or DRUJ. While still appropriately sedated, a manual closed reduction was performed. Repeat imaging confirmed improved alignment of the fracture. A long arm posterior sugartong splint was applied and molded to maintain reduction. Post-reduction x-rays confirmed improved alignment on both views with neutral volar tilt. The patient tolerated this well and was transferred to a hospital bed and taken to recovery in stable condition.
--- NOTE | 2018-12-04 18:58 | P.PN ---
Subjective Progress Note Date: 12/04/18 Patient just returned from the OR after her right wrist closed reduction and right hip hemiarthroplasty which she tolerated well but she had significant amount of blood loss as reported during the OR reports. Patient is still little drowsy but opens her eyes and follows commands appropriately states she is doing fine and denies complaint. To the nurse patient reported that she is little nauseous although she received 4 mg of Zofran about 1-1/2 hour ago. Patient denies chest pain, palpitation, cough, sputum, fever, chills, headaches, dizziness, diaphoresis and denies rest of the review system. Objective - Vital Signs Vital signs: Vital Signs Temp 98 F 12/04/18 17:15 Pulse 60 12/04/18 18:15 Resp 14 12/04/18 17:15 BP 93/57 12/04/18 18:15 Pulse Ox 95 12/04/18 17:15 Intake & Output 12/03/18 12/04/18 12/04/18 18:59 06:59 18:59 Intake Total 100 1900 Output Total 1300 1550 Balance -1200 350 Weight 99.79 kg Intake: IV 1200 Intake, IV Titration 100 700 Amount Sodium Chloride 0.9% 1, 100 700 000 ml @ 100 mls/hr IV . Q10H [facility] Rx#:[id number] Oral 0 Output: Urine 1300 750 Uretheral ([place]) 1300 Estimated Blood Loss 800 Other: Voiding Method Indwelling Catheter Indwelling Catheter - Constitutional General appearance: Present: cooperative, no acute distress - EENT Eyes: Present: EOMI, normal appearance ENT: Present: hearing grossly normal, NA/AT - Respiratory Respiratory: bilateral: CTA, negative: rales, rhonchi, wheezing - Cardiovascular Rhythm: regular Heart sounds: normal: S1, S2 Abnormal Heart Sounds: Absent: systolic murmur, diastolic murmur, S3 Gallop, S4 Gallop - Gastrointestinal General gastrointestinal: Present: normal bowel sounds, soft. Absent: distended, tenderness - Psychiatric Psychiatric: Present: A&O x's 3, appropriate affect - Allied health notes Allied health notes reviewed: nursing - Labs CBC & Chem 7: 12/04/18 13:50 12/03/18 18:51 Labs: Abnormal Lab Results - Last 24 Hours (Table) 12/03/18 12/03/18 12/04/18 Range/Units 18:51 18:51 13:50 WBC 11.4 H 12.8 H (3.8-10.6) k/uL Neutrophils # 8.9 H (1.3-7.7) k/uL BUN 21 H (7-17) mg/dL Glucose 125 H (74-99) mg/dL AST 40 H (14-36) U/L Assessment and Plan (1) Fall Current Visit: Yes Status: Acute Priority: High Code(s): W19.XXXA - UNSPECIFIED FALL, INITIAL ENCOUNTER SNOMED Code(s): 7734493 (2) Hip fracture, right Current Visit: Yes Status: Acute Priority: High Code(s): S72.001A - FRACTURE OF UNSP PART OF NECK OF RIGHT FEMUR, INIT SNOMED Code(s): 206935866 (3) Wrist fracture, right Current Visit: Yes Status: Acute Priority: High Code(s): S62.101A - FRACTURE OF UNSP CARPAL BONE, RIGHT WRIST, INIT FOR CLOS FX SNOMED Code(s): 758993631 Plan: Patient just came from the surgery she still little bit drowsy we'll continue to monitor her closely her vitals are stable at this point in time hemoglobin will be monitored in the morning and there patient current medication will be continued. It was suggested that for her nausea she can get another 2 mg dose of Zofran IV in next 4 hours if needed otherwise to 6 hour when necessary is fine for her at this point in time and nurse was advised not to give Zofran 4 mild nausea until patient has issues with her appetite or she is vomiting. We'll continue to monitor patient while she is in the hospital. Time with Patient: Less than 30
[2018-12-04] MEDS ORDERED: METOCLOPRAMIDE 5 MG/ML 2 ML VIAL IVP PRN (19:18)
[2018-12-04] MEDS: SENNOSIDES-DOCUSATE SODIUM 1 EACH TAB PO SCH (22:15)
[2018-12-04] MEDS: ONDANSETRON 4 MG/2 ML VIAL IVP PRN (22:32)
[2018-12-05] MEDS: SODIUM CHLORIDE 0.9% 1,000 ML IV SCH ×2 (02:41→12:36)
[2018-12-05] MEDS: MORPHINE SULFATE 4 MG/ML SYRINGE IV PRN ×2 (06:00→15:18)
[2018-12-05 07:25] LABS: Basophils % (A) 0 %; Eosinophils # (A) 0.1 k/uL (0-0.7); Eosinophils % (A) 1 %; HCT 28.6 % (34.0-46.0); Lymphocytes # (A) 1.4 k/uL (1.0-4.8); Lymphocytes % (A) 12 %; MCH 31.8 pg (25.0-35.0); MCHC 32.6 g/dL (31.0-37.0); MCV 97.5 fL (80.0-100.0); Mean Platelet Volume 8.5; Monocytes # (A) 0.8 k/uL (0-1.0); Monocytes % (A) 7 %; Neutrophils # (A) 8.8 k/uL (1.3-7.7); Neutrophils % (A) 79 %; Platelet Count 140 k/uL (150-450); RBC 2.94 m/uL (3.80-5.40); RDW 14.7 % (11.5-15.5); WBC 11.2 k/uL (3.8-10.6)
[2018-12-05 07:33] LABS: HGB 9.3 gm/dL (11.4-16.0)
[2018-12-05] MEDS: ENOXAPARIN 40 MG/0.4 ML SYRINGE SQ SCH (10:07)
[2018-12-05] MEDS: PANTOPRAZOLE 40 MG/10 ML VIAL IV SCH (10:07)
[2018-12-05] MEDS: ATENOLOL 50 MG TAB PO SCH (10:08)
[2018-12-05] MEDS: amLODIPine 10 MG TAB PO SCH (10:08)
[2018-12-05] MEDS: HYDROcodone/APAP 5-325MG 1 EACH TAB PO PRN ×2 (10:08→20:46)
[2018-12-05] MEDS: ONDANSETRON 4 MG/2 ML VIAL IVP PRN (10:27)
--- NOTE | 2018-12-05 15:09 | P.PN ---
Subjective Progress Note Date: 12/05/18 Patient reports that she is feeling better today but had significant pain in the right forearm and wrist area overnight. She stated that it was 10/10 in intensity and her right hip area pain was 8/10 in intensity. Patient hemoglobin was noted to decline from 13.8 at admission to 9.3 this morning, as she had significant bleeding during the surgery. Nurse reports that patient is maximum assist and transfers and for ambulation and will be requiring subacute rehabilitation post discharge. Patient denies chest pain, palpitation, headache, dizziness, nausea, vomiting, diarrhea and denies rest of the review system. Objective - Vital Signs Vital signs: Vital Signs Temp 98.2 F 12/05/18 06:48 Pulse 71 12/05/18 06:48 Resp 20 12/05/18 06:48 BP 118/67 12/05/18 06:48 Pulse Ox 94 L 12/05/18 06:48 Intake & Output 12/04/18 12/05/18 12/05/18 18:59 06:59 18:59 Intake Total 1900 500 Output Total 1550 1400 275 Balance 350 -900 -275 Intake: IV 1200 Intake, IV Titration 700 Amount Sodium Chloride 0.9% 1, 700 000 ml @ 100 mls/hr IV . Q10H JOSE MANUEL Rx#:[id number] Oral 500 Output: Urine 750 600 275 Emesis 800 Estimated Blood Loss 800 Other: Voiding Method Indwelling Catheter Indwelling Catheter Indwelling Catheter # Emeses 1 - Constitutional General appearance: Present: cooperative, no acute distress - EENT Eyes: Present: EOMI, normal appearance ENT: Present: hearing grossly normal, NA/AT - Neck Neck: Present: normal ROM. Absent: lymphadenopathy, thyromegaly - Respiratory Respiratory: bilateral: CTA, negative: rales, rhonchi, wheezing - Cardiovascular Rhythm: regular Heart sounds: normal: S1, S2 Abnormal Heart Sounds: Absent: systolic murmur, diastolic murmur, S3 Gallop, S4 Gallop - Gastrointestinal General gastrointestinal: Present: normal bowel sounds, soft. Absent: distended, rigid, tenderness - Neurologic Neurologic: Present: CNII-XII intact. Absent: focal deficits - Psychiatric Psychiatric: Present: A&O x's 3, appropriate affect, intact judgment & insight - Allied health notes Allied health notes reviewed: nursing - Labs CBC & Chem 7: 12/05/18 06:26 12/03/18 18:51 Labs: Abnormal Lab Results - Last 24 Hours (Table) 12/05/18 Range/Units 06:26 WBC 11.2 H (3.8-10.6) k/uL RBC 2.94 L (3.80-5.40) m/uL Hgb 9.3 L D (11.4-16.0) gm/dL Hct 28.6 L (34.0-46.0) % Plt Count 140 L (150-450) k/uL Neutrophils # 8.8 H (1.3-7.7) k/uL Assessment and Plan (1) Fall Current Visit: Yes Status: Acute Priority: High Code(s): W19.XXXA - U NSPECIFIED FALL, INITIAL ENCOUNTER SNOMED Code(s): 7781775 (2) Hip fracture, right Current Visit: Yes Status: Acute Priority: High Code(s): S72.001A - FRACTURE OF UNSP PART OF NECK OF RIGHT FEMUR, INIT SNOMED Code(s): 962980602 (3) Wrist fracture, right Current Visit: Yes Status: Acute Priority: High Code(s): S62.101A - FRACTURE OF UNSP CARPAL BONE, RIGHT WRIST, INIT FOR CLOS FX SNOMED Code(s): 034047525 Plan: Patient pain medications are prescribed but was not given so it was re- emphasized to give hydrocodone when indicated. I will monitor patient's hemoglobin and will check CBC in the morning. Patient was counseled regarding subacute rehabilitation and the need for it, initially patient refused but later on she agreed that she will go for subacute rehabilitation. We will provide better pain management and patient will be proactively working with the therapy towards her rehabilitation. Goal is to send her back into the community after the rehabilitation process. Rest of the medications for chronic stable medical problems be continued as it is. Time with Patient: Less than 30
[2018-12-05] MEDS: SENNOSIDES-DOCUSATE SODIUM 1 EACH TAB PO SCH (20:48)
[2018-12-06] MEDS: HYDROcodone/APAP 5-325MG 1 EACH TAB PO PRN ×2 (05:37→13:07)
[2018-12-06] MEDS: ATENOLOL 50 MG TAB PO SCH (08:28)
[2018-12-06] MEDS: PANTOPRAZOLE 40 MG TABLET PO SCH (08:29)
[2018-12-06] MEDS: amLODIPine 10 MG TAB PO SCH (08:29)
[2018-12-06] MEDS: ENOXAPARIN 40 MG/0.4 ML SYRINGE SQ SCH (08:29)
[2018-12-06 08:47] LABS: HCT 27.7 % (34.0-46.0); HGB 9.2 gm/dL (11.4-16.0); MCH 31.6 pg (25.0-35.0); MCHC 33.2 g/dL (31.0-37.0); MCV 95.2 fL (80.0-100.0); Mean Platelet Volume 7.9; Platelet Count 118 k/uL (150-450); RBC 2.92 m/uL (3.80-5.40); RDW 13.9 % (11.5-15.5); WBC 8.6 k/uL (3.8-10.6)
--- NOTE | 2018-12-06 10:40 | P.PN ---
<Ana Anderson - Last Filed: 12/06/18 10:35> Subjective Progress Note Date: 12/06/18 Principal diagnosis: Status post right hip hemiarthroplasty and closed reduction right distal radius This is a 77 year-old female post right hip hemiarthroplasty and closed reduction right distal radius. This is post-op day 2. The patient was evaluated at the bedside today. The patient denies nausea, vomiting, abdominal pain, shortness of breath, and chest pain this morning. She states her pain is controlled at this time but states its very painful when rolling in bed and getting in the chair. The patient has been up with physical therapy but only has pivoted into the chair. Objective - Vital Signs Vital signs: Vital Signs Temp 98.2 F 12/06/18 06:06 Pulse 74 12/06/18 06:06 Resp 16 12/06/18 09:47 BP 129/62 12/06/18 06:06 Pulse Ox 95 12/06/18 09:47 Intake & Output 12/05/18 12/06/18 12/06/18 18:59 06:59 18:59 Intake Total 100 Output Total 275 1300 Balance -275 -1200 Intake: Oral 100 Output: Urine 275 1300 Emesis 0 Other: Voiding Method Indwelling Catheter Indwelling Catheter Indwelling Catheter # Bowel Movements 0 - Exam The patient does not appear in acute distress. Alert and orientated x3. Dressing is clean dry and intact. Incision appears fine with no erythema or active drainage. Calf is soft and nontender. Good foot and ankle motion witho ut difficulty. There is a sugar tong splint to the right upper extremity that is clean, dry, and intact. She is able to make a fist and fully extend her fingers. Swelling is present to the fingers. She denies numbness. Sensation and circulatory status is intact. - Labs CBC & Chem 7: 12/06/18 08:17 12/03/18 18:51 Labs: Abnormal Lab Results - Last 24 Hours (Table) 12/06/18 Range/Units 08:17 RBC 2.92 L (3.80-5.40) m/uL Hgb 9.2 L (11.4-16.0) gm/dL Hct 27.7 L (34.0-46.0) % Plt Count 118 L (150-450) k/uL Assessment and Plan (1) Fracture of femoral neck, right Current Visit: Yes Status: Acute Code(s): S72.001A - FRACTURE OF UNSP PART OF NECK OF RIGHT FEMUR, INIT SNOMED Code(s): 0254473 (2) Distal radius fracture, right Current Visit: Yes Status: Acute Code(s): S52.501A - UNSP FRACTURE OF THE LOWER END OF RIGHT RADIUS, INIT SNOMED Code(s): 668000518 (3) Fall Current Visit: Yes Status: Acute Priority: High Code(s): W19.XXXA - UNSPECIFIED FALL, INITIAL ENCOUNTER SNOMED Code(s): 9878546 Plan: 1. Continue pain control 2. Anticoagulation with Lovenox 3. Continue physical therapy and ambulation 4. Anticipate discharge to [facility], likely tomorrow. <Lee Asif - Last Filed: 12/07/18 11:19> Objective - Vital Signs Vital signs: Vital Signs Temp 98.5 F 12/07/18 05:20 Pulse 83 12/07/18 05:20 Resp 20 12/07/18 05:20 BP 146/71 12/07/18 05:20 Pulse Ox 96 12/07/18 05:20 Intake & Output 12/06/18 12/07/18 12/07/18 18:59 06:59 18:59 Intake Total 120 350 Output Total 650 2600 2200 Balance -530 -2250 -2200 Intake: Oral 120 350 Output: Urine 650 2600 2200 Uretheral ([place]) 1300 1300 Other: Voiding Method Indwelling Catheter Indwelling Catheter Indwelling Catheter # Bowel Movements 0 # Emeses 1 - Labs CBC & Chem 7: 12/07/18 08:56 12/03/18 18:51 Labs: Abnormal Lab Results - Last 24 Hours (Table) 12/07/18 Range/Units 08:56 RBC 2.91 L (3.80-5.40) m/uL Hgb 9.1 L (11.4-16.0) gm/dL Hct 27.0 L (34.0-46.0) % Plt Count 145 L (150-450) k/uL Lymphocytes # 0.9 L (1.0-4.8) k/uL Assessment and Plan Plan: Discussed with SENIA Anderson and agree with above. Patient was subsequently seen and examined by myself as well. S: Pain at rest is well-controlled but she does note an increase in hip pain with rolling her transfers. She has not made much progress yet with therapy. She notes swelling in the fingers of the right hand. O: Moderate digital edema on the right hand. The dorsal plaster was somewhat com pressing over the distal metacarpals and this was adjusted and loosened. A/P Status post right hip hemiarthroplasty Displaced right distal radius fracture-nonoperative treatment planned I instructed her to continue icing and elevating the right wrist as much as possible. If the swelling improves, we will likely transition to a short arm cast for better protection and to allow some improvement weightbearing with a platform walker. Continue PT/OT as able. PRN pain management. DC planning for ANGIE in progress Lee Asif D.O. [facility]
--- NOTE | 2018-12-06 10:52 | XR ---
EXAMINATION TYPE: XR chest 1V portable DATE OF EXAM: 12/06/2018 COMPARISON: 12/03/2018 INDICATION: Short of breath TECHNIQUE: Single frontal view of the chest is obtained. FINDINGS: The heart size is mildly prominent. The pulmonary vasculature is normal. The lungs are clear. Old right rib fractures evident. IMPRESSION: 1. Cardiomegaly. 2. Exam stable from 12/03/2018
--- NOTE | 2018-12-06 11:34 | P.PN ---
Subjective Progress Note Date: 12/06/18 Patient is seen for medical consultation follow-up for her to postsurgical his anemia and other medical conditions. Patient today states she is doing fine she does have a pain in the right hip area and right wrist area where she had cast on but patient denies any significant pain that she cannot tolerate. Patient denies fever or chills, denies chest pain, palpitation and shortness of breath and diaphoresis. She denies nausea/vomiting and denies rest of the review system. Nurses reported that patient was not on home oxygen but here she is on 4 L nasal cannula oxygen and her saturations are around 94%. During evaluation of the patient was noted that patient is a mouth breather and day the cannula is in her nose. It was suggested to nurse on duty to taper off oxygen and monitor pulse ox. Patient oxygen was discontinued about a tapering patient and her pulse ox remained around 94%. Objective - Vital Signs Vital signs: Vital Signs Temp 98.2 F 12/06/18 06:06 Pulse 74 12/06/18 06:06 Resp 16 12/06/18 09:47 BP 129/62 12/06/18 06:06 Pulse Ox 95 12/06/18 09:47 Intake & Output 12/05/18 12/06/18 12/06/18 18:59 06:59 18:59 Intake Total 100 Output Total 275 1300 Balance -275 -1200 Intake: Oral 100 Output: Urine 275 1300 Emesis 0 Other: Voiding Method Indwelling Catheter Indwelling Catheter Indwelling Catheter # Bowel Movements 0 - Constitutional General appearance: Present: cooperative, no acute distress - EENT Eyes: Present: EOMI, normal appearance ENT: Present: hearing grossly normal, NA/AT - Respiratory Respiratory: bilateral: CTA, negative: rales, rhonchi, wheezing - Cardiovascular Rhythm: regular Heart sounds: normal: S1, S2 - Gastrointestinal General gastrointestinal: Absent: distended, organomegaly, soft, tenderness - Neurologic Neurologic: Present: CNII-XII intact. Absent: focal deficits - Psychiatric Psychiatric: Present: A&O x's 3, appropriate affect, intact judgment & insight - Allied health notes Allied health notes reviewed: nursing - Labs CBC & Chem 7: 12/06/18 08:17 12/03/18 18:51 Labs: Abnormal Lab Results - Last 24 Hours (Table) 12/06/18 Range/Units 08:17 RBC 2.92 L (3.80-5.40) m/uL Hgb 9.2 L (11.4-16.0) gm/dL Hct 27.7 L (34.0-46.0) % Plt Count 118 L (150-450) k/uL Assessment and Plan (1) Fall Current Visit: Yes Status: Acute Priority: High Code(s): W19.XXXA - UNSPECIFIED FALL, INITIAL ENCOUNTER SNOMED Code(s): 5562910 (2) Hip fracture, right Current Visit: Yes Status: Acute Priority: High Code(s): S72.001A - FRACTURE OF UNSP PART OF NECK OF RIGHT FEMUR, INIT SNOMED Code(s): 735915566 (3) Wrist fracture, right Current Visit: Yes Status: Acute Priority: High Code(s): S62.101A - FRACTURE OF UNSP CARPAL BONE, RIGHT WRIST, INIT FOR CLOS FX SNOMED Code(s): 811045995 Plan: Patient oxygen will be tapered off she will be given incentive spirometry and educated on to use every 2 hours while awake and it was recommended that patient should go to subacute rehabilitation after discharge from the subacute care facility. She may be eligible to subacute rehab or she may require slow rehab in the long term. Patient hemoglobin is remaining stable in the past 24 hours I will monitored tomorrow morning, there is no clinical evidence of ex cessive bleeding. Patient does have increased bleeding during the surgical procedure. Time with Patient: Less than 30
[2018-12-06] MEDS ORDERED: MORPHINE ORAL SOLN 10 MG/5 ML CUP PO PRN (11:57)
[2018-12-06] MEDS: ONDANSETRON 4 MG/2 ML VIAL IVP PRN (13:04)
[2018-12-06] MEDS: SENNOSIDES-DOCUSATE SODIUM 1 EACH TAB PO SCH (20:00)
[2018-12-06 23:09] VITALS: PULSE 83; RESP 20
[2018-12-07 06:08] VITALS: BP 146/71; TEMP 98.5
[2018-12-07] MEDS: HYDROcodone/APAP 5-325MG 1 EACH TAB PO PRN ×2 (07:59→13:36)
[2018-12-07] MEDS: ENOXAPARIN 40 MG/0.4 ML SYRINGE SQ SCH (07:59)
[2018-12-07] MEDS: PANTOPRAZOLE 40 MG TABLET PO SCH (08:00)
[2018-12-07] MEDS: ATENOLOL 50 MG TAB PO SCH (08:00)
[2018-12-07] MEDS: amLODIPine 10 MG TAB PO SCH (08:00)
[2018-12-07 09:42] LABS: Basophils % (A) 0 %; Eosinophils # (A) 0.2 k/uL (0-0.7); Eosinophils % (A) 2 %; HGB 9.1 gm/dL (11.4-16.0); Lymphocytes # (A) 0.9 k/uL (1.0-4.8); Lymphocytes % (A) 11 %; MCH 31.3 pg (25.0-35.0); MCHC 33.7 g/dL (31.0-37.0); Monocytes # (A) 0.7 k/uL (0-1.0); Monocytes % (A) 8 %; Neutrophils # (A) 6.7 k/uL (1.3-7.7); Neutrophils % (A) 77 %; Platelet Count 145 k/uL (150-450); RBC 2.91 m/uL (3.80-5.40); RDW 14.7 % (11.5-15.5); WBC 8.6 k/uL (3.8-10.6)
--- NOTE | 2018-12-07 11:14 | P.PN ---
Subjective Progress Note Date: 12/07/18 The patient was seen and examined at the bedside. She admits to feeling warm but is been afebrile. She states the pain in both the hip and wrist have improved. Objective - Vital Signs Vital signs: Vital Signs Temp 98.5 F 12/07/18 05:20 Pulse 83 12/07/18 05:20 Resp 20 12/07/18 05:20 BP 146/71 12/07/18 05:20 Pulse Ox 96 12/07/18 05:20 Intake & Output 12/06/18 12/07/18 12/07/18 18:59 06:59 18:59 Intake Total 120 350 Output Total 650 2600 2200 Balance -530 -2250 -2200 Intake: Oral 120 350 Output: Urine 650 2600 2200 Uretheral ([place]) 1300 1300 Other: Voiding Method Indwelling Catheter Indwelling Catheter Indwelling Catheter # Bowel Movements 0 # Emeses 1 - Exam General: Lying supine in bed. Appears comfortable but somewhat somnolent. Skin warm and moist Musculoskeletal - right hip: The dressing is clean and dry without shadowing. No hematoma or significant ecchymosis Abduction pillow in place. Intact light touch sensation and gross motor function distally. Leg lengths appear symmetric. Right wrist: The splint was windowed-the edema around the wrist is minimal. No ulcerations or fracture blisters. Appropriate tenderness to palpation. No gross malalignment. - Labs CBC & Chem 7: 12/07/18 08:56 12/03/18 18:51 Labs: Abnormal Lab Results - Last 24 Hours (Table) 12/07/18 Range/Units 08:56 RBC 2.91 L (3.80-5.40) m/uL Hgb 9.1 L (11.4-16.0) gm/dL Hct 27.0 L (34.0-46.0) % Plt Count 145 L (150-450) k/uL Lymphocytes # 0.9 L (1.0-4.8) k/uL Assessment and Plan Assessment: 1. Postop day #3 status post right hip hemiarthroplasty for femoral neck fracture 2. Displaced right distal radius fracture - nonoperative treatment with splinting/casting 3. Acute postop anemia - stable Plan: Ms. Hathaway is doing well. I recommended transitioning to a short arm cast. This should afford better protection for the fracture as well as allowing some weightbearing through the forearm with a platform walker. A short arm known waterproof fiberglass cast was applied and molded by myself. We will obtain new x-rays to assess the alignment in the cast. Continue PT/OT - weightbearing as tolerated on the right lower extremity with a walker. I would prefer she wait a week to allow the fracture some healing time before beginning weightbearing through the forearm with the platform attachment. Maintain posterior hip precautions Maintain abduction pillow while in bed. Up with assist only, fall precautions. DVT prophylaxis with LMWH. Continue PRN pain management. Plan to discharge patient to rehab today if okay with internal medicine. She will follow up outpatient with me in 2 weeks. Lee Asif D.O. [facility]
--- NOTE | 2018-12-07 11:32 | P.DS ---
Providers Date of admission: 12/03/18 19:04 Expected date of discharge: 12/07/18 Attending physician: Lee Asif DO Consults: 12/03/18 19:17 Consult Physician Stat Consulting Provider: Florencio Burden Consult Reason/Comments: hip fracture, surgical clearance Do you want consulting provider notified?: Yes Primary care physician: Tor Campbell Hospital Course: The patient is a very pleasant 77-year-old female who presented to the hospital after a mechanical fall at home, which resulted in fractures of the right femoral neck and distal radius. The patient was cleared by medicine for surgery. The patient underwent a right hip hemiarthroplasty and closed reduction and splinting of the right distal radius on 12/04/[address] Asif. The procedures were performed without complication or sequelae. She worked with physical/occupational therapy. The patient is doing well postoperatively. Her hospital course was routine and uneventful. Vital signs are stable on the day of discharge. On the day of discharge, the patient's hip incision is healing well. There is no erythema or drainage. Neurovascular status to the right lower extremity is intact. A well-fitting short arm fiberglass cast is in place on the right wrist. The patient is discharged to subacute rehab in stable condition. Outpatient follow up instructions were provided. Procedures: Right hip hemiarthroplasty Closed reduction and splint application of displaced right distal raise fracture with subsequent application of a short arm cast Plan - Discharge Summary Discharge Rx Participant: Yes New Discharge Prescriptions: New Aspirin 325 mg PO BID #60 tab Docusate [Colace] 100 mg PO BID #60 capsule Enoxaparin [Lovenox] 40 mg SQ DAILY #14 syringe HYDROcodone/APAP 5-325MG [[place] 5] 1 each PO Q4HR PRN #60 tab PRN Reason: Pain No Action amLODIPine BESYLATE [Norvasc] 10 mg PO DAILY Atenolol [Tenormin] 50 mg PO DAILY Multivit-Minerals/Folic Acid [One Daily Womens 50 Plus Tab] 1 tab PO DAILY Calcium Carbonate/Vitamin D3 [Caltrate 600 + D Tablet] 1 tab PO BID Alendronate Sodium [Fosamax] 70 mg PO MO Losartan Potassium 100 mg PO DAILY Discharge Medication List Atenolol [Tenormin] 50 mg PO DAILY 06/15/14 [History] Calcium Carbonate/Vitamin D3 [Caltrate 600 + D Tablet] 1 tab PO BID 06/15/14 [History] Multivit-Minerals/Folic Acid [One Daily Womens 50 Plus Tab] 1 tab PO DAILY 06/15/14 [History] amLODIPine BESYLATE [Norvasc] 10 mg PO DAILY 06/15/14 [History] Alendronate Sodium [Fosamax] 70 mg PO MO 03/23/18 [History] Losartan Potassium 100 mg PO DAILY 03/23/18 [History] Aspirin 325 mg PO BID #60 tab 12/06/18 [Rx] Docusate [Colace] 100 mg PO BID #60 capsule 12/06/18 [Rx] Enoxaparin [Lovenox] 40 mg SQ DAILY #14 syringe 12/06/18 [Rx] HYDROcodone/APAP 5-325MG [[place] 5] 1 each PO Q4HR PRN #60 tab 12/07/18 [Rx] Follow up Appointment(s)/Referral(s): Tor Campbell MD [Primary Care Provider] - 1-2 days Lee Asif DO [Medical Doctor] - 2 Weeks Activity/Diet/Wound Care/Special Instructions: Hip dressing may be removed in 10 days or if saturated. PT - WBAT on the right lower extremity. Maintain posterior hip precautions. Apply abductor pillow while in bed May begin WBAT through the right forearm with a platform walker and assistance after 12/14/18 Use pain medication as directed. Continue LMWH for 2 weeks then change to ASA 325mg PO BID Elevate and ice right wrist Follow up outpatient with Dr. Asif in 2 weeks -- call for appointment. Call [facility] with questions or concerns Discharge Disposition: TRANSFER TO SNF/ECF
--- NOTE | 2018-12-07 11:57 | XR ---
EXAMINATION TYPE: XR wrist complete RT DATE OF EXAM: 12/07/2018 COMPARISON: 12/03/2018 HISTORY: Fracture TECHNIQUE: Right wrist is examined in 3 projections. FINDINGS: There is a transverse fracture of the distal metaphyseal radius. Alignment and positioning appears ap propriate. No new fractures are evident. Images are obtained through a fiberglass cast. IMPRESSION: 1. No new fractures or alignment change post casting.
== END 2018-12-07 14:19 | DRG 470 ==
LOC: EC 17:32 → 4SSUR 19:04 → 4MS4W 12-05 17:25
PROVIDERS: ADMIT Orthopaedic Surgery; ATTEND Orthopaedic Surgery
PROC: 0SRR0JA Replacement of Right Hip Joint, Femoral Surface with Synthetic Substitute, Uncemented, Open Approach (ICD-10-PCS; principal; 2018-12-04 08:00)
PROC: 0PSH35Z Reposition Right Radius with External Fixation Device, Percutaneous Approach (ICD-10-PCS; principal; 2018-12-04 08:00)
PROC: 2W3EX1Z Immobilization of Right Hand using Splint (ICD-10-PCS; principal; 2018-12-04 08:00)
DX: S72.031A Displaced midcervical fracture of right femur, initial encounter for closed fracture (principal); S52.591A Other fractures of lower end of right radius, initial encounter for closed fracture; D62 Acute posthemorrhagic anemia; I10 Essential (primary) hypertension; H50.9 Unspecified strabismus; W18.30XA Fall on same level, unspecified, initial encounter; Z90.710 Acquired absence of both cervix and uterus; Z90.49 Acquired absence of other specified parts of digestive tract; Y92.009 Unspecified place in unspecified non-institutional (private) residence as the place of occurrence of the external cause; Z79.83 Long term (current) use of bisphosphonates; Z79.899 Other long term (current) drug therapy
CPT/HCPCS: 29125; 36415; 51702; 70450; 71045; 73501; 73502; 80053; 81003; 85025; 85027; 85610; 85730; 86850; 86900; 86901; 88305; 88311; 93005; 94760; 96374; 99285

== ENCOUNTER → 2020-01-03 | Outpatient (CLI) | payer MEDICARE ==
--- NOTE | 2020-01-03 11:44 | BD ---
EXAMINATION TYPE: Axial Bone Density DATE OF EXAM: 01/03/2020 COMPARISON: 10.19.2017 CLINICAL HISTORY: 79 YR OLD FEMALE.....ICD-10 CODE: M89.9 DISORDER OF BONE Height: 69.4 Weight: 210 FRAX RISK QUESTIONS: History of Fracture in Adulthood: YES RISK FACTORS HISTORY OF: Hip Fracture RT HIP FX AND RT WRIST FX SURGICAL REPAIR LAST YR History of Wrist Fracture: RT AT AGE 78 Surgery to RT HIP.....BOBO REPLACEMENT FROM FX AT AGE 78 Postmenopausal woman: AT AGE 54 YRS OLD WITH TOTAL HYST. Take estrogen and/or progesterone medications: FOR A WHILE, IN THE PAST NONE NOW How lonYRS Lost more than 2 inches in height since high school: YES Frequent falls: YES, FELL LAST YR BROKE HIP AND WRIST, USING CANE NOW Hyperparathyroidism: NO Adrenal Insufficiency: NO MEDICATIONS: Osteoporosis Medications: YES, FOSAMAX WEEKLY, FOR ABOUT 3 YRS Additional Medications: BP MEDS, MULTIVITAMIN, CALTRATE WITH D Additional History: HYPERTENSION, OSTEOARTHRITIS, EXAM MEASUREMENTS: Bone mineral densitometry was performed using the [employer] System. Bone mineral density as measured about the Lumbar spine is: ----- L1-L4(G/cm2): 1.265 T Score Values are as follows: ----- L1: 0.3 ----- L2: 1.3 ----- L3: 1.6 ----- L4: -0.3 ----- L1-L4: 0.7 Bone mineral density has: Increased 8.1% since study of: 10.19.2017 Bone mineral density about the L hip (g/cm2): 0.801 T Score values are as follows: -----L Neck: -2.5 -----L Total: -1.6 Bone mineral density has: Decreased -3.5% since study of: 10.19.2017 FRAX%s: THERE IS A 25.0% CHANCE FOR A MAJOR OSTEOPOROTIC FX AND A 7.7% FOR HIP.....PROBABILITY FOR FX IN 10 YRS TIME IMPRESSION: osteoporosis of the left hip NOTE: T-SCORE=SD OF THE YOUNG ADULT MEAN.
--- NOTE | 2020-01-04 10:46 | MM ---
Reason for exam: screening (asymptomatic). Last mammogram was performed 2 years and 2 months ago. History: Patient is postmenopausal. Physical Findings: A clinical breast exam by your physician is recommended on an annual basis and results should be correlated with mammographic findings. MG Screening Mammo w CAD Bilateral CC and MLO view(s) were taken. Prior study comparison: October 28, 2017, right breast MG 3d work up w/cad RT. October 19, 2017, bilateral MG 3d screening mammo w/cad. The breast tissue is heterogeneously dense. This may lower the sensitivity of mammography. Stable benign calcifications. There is no discrete abnormality. No significant changes when compared with prior studies. ASSESSMENT: Benign, BI-RAD 2 RECOMMENDATION: Routine screening mammogram of both breasts in 1 year.
== END | disposition home or self-care (01) ==
LOC: RADMAMWWP 09:27
PROVIDERS: ATTEND Internal Medicine
DX: Z12.31 Encounter for screening mammogram for malignant neoplasm of breast (principal); M81.0 Age-related osteoporosis without current pathological fracture
CPT/HCPCS: 77067; 77080

== ENCOUNTER 2020-02-13 17:39 | Inpatient (IN) | payer MEDICARE ==
--- NOTE | 2020-02-13 18:13 | ED ---
Fall HPI - General Source: patient, EMS, RN notes reviewed Mode of arrival: EMS Limitations: no limitations <Sachin Plascencia - Last Filed: 02/13/20 18:18> <aHl Chaney - Last Filed: 02/13/20 18:28> - General Chief Complaint: Fall Stated Complaint: fall/left hip pain Time Seen by Provider: 02/13/20 17:55 - History of Present Illness Initial Comments: 79-year-old female presents emergency Department chief complaint of fall. Patient is taking out her trash when she tripped falling on her left hip. Patient complains of left hip left pelvic pain. Patient had no injury no loss conscious. Patient states she had a right hip replacement last year by Dr. Asif. Patient states that she was doing well up until today. Patient denies any paresthesias patient denies any back pain no other complaints. (Sachin Plascencia) - Related Data Home Medications Medication Instructions Recorded Confirmed Calcium Carbonate/Vitamin D3 1 tab PO BID 06/15/14 12/03/18 [Caltrate 600 Plus D3 Tablet] Multivit-Minerals/Folic Acid [One 1 tab PO DAILY 06/15/14 12/03/18 Daily Womens 50 Plus Tab] amLODIPine BESYLATE [Norvasc] 10 mg PO DAILY 06/15/14 12/03/18 atenoloL [Tenormin] 50 mg PO DAILY 06/15/14 12/03/18 Alendronate Sodium [Fosamax] 70 mg PO MO 03/23/18 12/03/18 Losartan Potassium 100 mg PO DAILY 03/23/18 12/03/18 Previous Rx's Medication Instructions Recorded Aspirin 325 mg PO BID #60 tab 12/06/18 Docusate [Colace] 100 mg PO BID #60 capsule 12/06/18 Enoxaparin [Lovenox] 40 mg SQ DAILY #14 syringe 12/06/18 HYDROcodone/APAP 5-325MG [[place] 5] 1 each PO Q4HR PRN #60 tab 12/07/18 Sennosides-Docusate Sodium 2 each PO HS #60 tab 12/07/18 [Senokot-S] Allergies Allergy/AdvReac Type Severity Reaction Status Date / Time No Known Allergies Allergy Verified 02/13/20 18:01 Review of Systems ROS Other: All systems not noted in ROS Statement are negative. <Sachin Plascencia - Last Filed: 02/13/20 18:18> ROS Other: All systems not noted in ROS Statement are negative. <Hal Chaney - Last Filed: 02/13/20 18:28> ROS Statement: Those systems with pertinent positive or pertinent negative responses have been documented in the HPI. Past Medical History Past Medical History: Hypertension History of Any Multi-Drug Resistant Organisms: None Reported Past Surgical History: Cholecystectomy, Hysterectomy Additional Past Surgical History / Comment(s): D&C Past Psychological History: No Psychological Hx Reported Past Alcohol Use History: None Reported Past Drug Use History: None Reported - Past Family History family Family Medical History: No Reported History <Sachin Plascencia - Last Filed: 02/13/20 18:18> General Exam Limitations: physical limitation General appearance: alert, in no apparent distress Head exam: Present: atraumatic, normocephalic, normal inspection ENT exam: Present: normal exam, mucous membranes moist Neck exam: Present: normal inspection. Absent: tenderness, meningismus, lymphadenopathy Respiratory exam: Present: normal lung sounds bilaterally. Absent: respiratory distress, wheezes, rales, rhonchi, stridor Cardiovascular Exam: Present: regular rate, normal rhythm, normal heart sounds. Absent: systolic murmur, diastolic murmur, rubs, gallop, clicks GI/Abdominal exam: Present: soft, normal bowel sounds. Absent: distended, tenderness, guarding, rebound, rigid Extremities exam: Present: other (There is mild shortening or malrotation left leg, neurovascular intact, pain with any range of motion movement of the left leg tenderness at the left hip) <Sachin Plascencia - Last Filed: 02/13/20 18:18> Course <Sachin Plascencia - Last Filed: 02/13/20 18:18> <Hal Chaney - Last Filed: 02/13/20 18:28> Vital Signs 02/13/20 17:53 Temperature 97.1 F L Pulse Rate 60 Respiratory 18 Rate Blood Pressure 170/88 O2 Sat by Pulse 96 Oximetry - Reevaluation(s) Reevaluation #1: 02/13/20 18:18 Patient was given 7 a morphine by EMS patient did not require any further pain medication on initial eval. (Sachin Plascencia) Reevaluation #2: 02/13/20 18:27 PA supervision: I did personally evaluate this case patient does present with a fall complains left hip pain. There is evidence of a fracture left hip. Is closed. Patient be admitted to orthopedics. I do agree with the assessment and plan (Hal Chaney) Medical Decision Making <Sachin Plascencia - Last Filed: 02/13/20 18:18> - Medical Decision Making 79-year-old presented for fall. Patient has left femoral neck fracture. Patient will be admitted to Dr. Chun with medicine consult. (Sachin Plascencia) Disposition <Sachin Plascencia - Last Filed: 02/13/20 18:18> <Hal Chaney - Last Filed: 02/13/20 18:28> Clinical Impression: Fall, Fracture of femoral neck, left, closed Disposition: ADMITTED IP TO THIS [facility] Condition: Fair Referrals: Channing Lorenzo MD [Primary Care Provider] - 1-2 days
[2020-02-13] MEDS ORDERED: NALOXONE 0.4 MG/ML 1 ML VIAL IV PRN (18:21)
[2020-02-13] MEDS ORDERED: ONDANSETRON 4 MG/2 ML VIAL IVP PRN (18:21)
[2020-02-13] MEDS: MORPHINE SULFATE 4 MG/ML SYRINGE IV PRN (18:48)
--- NOTE | 2020-02-13 18:54 | XR ---
EXAMINATION TYPE: XR Hip LT and AP Pelvis DATE OF EXAM: 02/13/2020 COMPARISON: NONE HISTORY: Pain. Fall. TECHNIQUE: 5 views FINDINGS: The pelvic ring is intact. There is right hip prosthesis. I see no pelvic fracture. Sacroil iac joints appear intact. There is an acute impacted subcapital fracture left femur. There is approximate 2 cm of impaction. Th ere is no dislocation. IMPRESSION: Acute impacted subcapital fracture left femur.
[2020-02-13 19:36] LABS: Basophils % (A) 1 %; Eosinophils # (A) 0.1 k/uL (0-0.7); Eosinophils % (A) 2 %; HCT 43.3 % (34.0-46.0); HGB 14.3 gm/dL (11.4-16.0); Lymphocytes # (A) 1.1 k/uL (1.0-4.8); Lymphocytes % (A) 13 %; MCH 31.2 pg (25.0-35.0); MCV 94.5 fL (80.0-100.0); Mean Platelet Volume 8.5; Monocytes # (A) 0.5 k/uL (0-1.0); Monocytes % (A) 6 %; Neutrophils # (A) 6.6 k/uL (1.3-7.7); Neutrophils % (A) 78 %; Platelet Count 181 k/uL (150-450); RBC 4.59 m/uL (3.80-5.40); RDW 13.7 % (11.5-15.5); WBC 8.5 k/uL (3.8-10.6)
[2020-02-13 19:44] LABS: Appearance,Urine Clear (Clear); Bilirubin,Urine Negative (Negative); Blood,Urine Negative (Negative); Color,Urine Yellow; Glucose,Urine (UA) Negative (Negative); Ketones,Urine Negative (Negative); Leukocyte Esterase,Urine Negative (Negative); Nitrite,Urine Negative (Negative); PH, Urine 5.5 (5.0-8.0); Protein,Urine Trace (Negative); Specific Gravity,Urine 1.019 (1.001-1.035); Urobilinogen,Urine <2.0 mg/dL (<2.0)
[2020-02-13 19:47] LABS: Albumin 4.2 g/dL (3.5-5.0); Calcium 9.8 mg/dL (8.4-10.2); Potassium 3.9 mmol/L (3.5-5.1); Total Bilirubin 0.5 mg/dL (0.2-1.3); Total Protein 7.3 g/dL (6.3-8.2)
--- NOTE | 2020-02-13 19:51 | XR ---
EXAMINATION TYPE: XR chest 1V DATE OF EXAM: 02/13/2020 COMPARISON: 12/06/2018 HISTORY: Chest pain TECHNIQUE: FINDINGS: Heart is normal. Lungs are clear of consolidation. There are numerous bilateral old rib fra ctures. Costophrenic angles are clear. There is some arthritic change in the left shoulder joint. IMPRESSION: No active cardiopulmonary disease. No change.
[2020-02-13 19:55] LABS: INR 0.9 (<1.2); Prothrombin Time 9.8 sec (9.0-12.0)
[2020-02-13 20:09] LABS: Partial Thromboplastin Time 21.8 sec (22.0-30.0)
[2020-02-13] MEDS: HYDROcodone/APAP 5-325MG 1 EACH TAB PO PRN (22:08)
--- NOTE | 2020-02-13 23:47 | P.CONS ---
History of Present Illness - Reason for Consult Consult date: 02/13/20 - History of Present Illness patient is a 79-year-old female with a PMH of hypertension, hyperlipidemia, history of right hip fracture status post repair in 2019 presented to the ED after a fall. The patient reports that she was at her home and was taking out her garbage to the curb when she slipped and fell on her left side, and immediately had severe pain in the region. Notes that at time of the interview her pain had improved to a 4 out of 10. Hip x-ray revealed an acute impacted subcapital fracture of the left femur. The patient otherwise deniedactive complaints. She denied chest pain, shortness of breath, fever, chills. Denied nausea, vomiting, dizziness, or palpitations. Patient notes that she ambulates at home without assistance though does use a cane if she is going outside area she was not using her cane today while walking her garbage to the curb. the patient notes that over the past 2 weeks however she has noticed that her legs swell up by the end of the day though the swelling is resolved after she goes to bed at night. Chest x-ray was unremarkable. EKG showing sinus bradycardia with sinus arrhythmia at 58 bpm with T-wave inversion in leads V1 to V3, unchanged from prior EKG in 2019. laboratory evaluation was reviewed. Review of Systems Pertinent positives and negatives as discussed in HPI, a complete review of systems was performed and all other systems are negative. Past Medical History Past Medical History: Hypertension History of Any Multi-Drug Resistant Organisms: None Reported Past Surgical History: Cholecystectomy, Hysterectomy Additional Past Surgical History / Comment(s): D&C Past Psychological History: No Psychological Hx Reported Past Alcohol Use History: None Reported Past Drug Use History: None Reported - Past Family History family Family Medical History: No Reported History Medications and Allergies Home Medications Medication Instructions Recorded Confirmed Type Calcium Carbonate/Vitamin D3 1 tab PO BID 06/15/14 02/13/20 History [Caltrate 600 Plus D3 Tablet] Multivit-Minerals/Folic Acid [One 1 tab PO DAILY 06/15/14 02/13/20 History Daily Womens 50 Plus Tab] amLODIPine BESYLATE [Norvasc] 10 mg PO DAILY 06/15/14 02/13/20 History atenoloL [Tenormin] 50 mg PO DAILY 06/15/14 02/13/20 History Alendronate Sodium [Fosamax] 70 mg PO MO 03/23/18 02/13/20 History Losartan Potassium 100 mg PO DAILY 03/23/18 02/13/20 History Allergies Allergy/AdvReac Type Severity Reaction Status Date / Time No Known Allergies Allergy Verified 02/13/20 19:16 Physical Exam Vitals: Vital Signs Temp Pulse Pulse Resp BP BP Pulse Ox 02/13/20 21:00 97.7 F 65 17 157/77 96 02/13/20 17:53 97.1 F L 60 18 170/88 96 Intake and Output 02/13/20 02/13/20 02/14/20 14:59 22:59 06:59 Other: Voiding Method Indwelling Catheter Weight 97.069 kg General: non toxic, no distress, appears at stated age, overweight Derm: no unusual rashes/lesions no unusual ecchymoses, warm, dry Head: atraumatic, normocephalic, symmetric Eyes: strabismus, EOMI, no lid lag, anicteric sclera, pupils equal round reactive to light ENT: Nose and ears atraumatic, no thrush, no pharyngeal erythema Neck: No thyromegaly, no cervical lymphadenopathy, trachea midline, supple Mouth: no lip lesion, mucus membranes moist Cardiovascular: S1S2 reg, no murmur, positive posterior tibial pulse bilateral, 1+ bilateral lower family pitting edema, capillary refill less than 2 seconds Lungs: CTA bilateral, no rhonchi, no rales , no accessory muscle use Abdominal: soft, nontender to palpation, no guarding, no appreciable organomegaly, normal bowel sounds Ext: no gross muscle atrophy, muscle strength 5 out of 5 in all extremities except the left lower extremity due to pain, no contractures, no left hip overlying skin abnormalities noted Neuro: CN II-XI grossly intact, light touch intact all 4 extremities, finger to nose within normal limits Psych: Alert, oriented, appropriate affect Results CBC & Chem 7: 02/13/20 18:52 02/13/20 18:52 Labs: Abnormal Lab Results - Last 24 Hours (Table) 02/13/20 02/13/20 02/13/20 Range/Units 18:52 18:52 19:10 APTT 21.8 L (22.0-30.0) sec BUN 24 H (7-17) mg/dL Glucose 127 H (74-99) mg/dL Urine Protein Trace H (Negative) Assessment and Plan Plan: Left femoral fracture -Management including pain control and DVT prophylaxis as per the surgery service Hypertension -Continue with Norvasc and atenolol -Hold losartan and resume postoperatively Preoperative evaluation for planned left femoral fracture repair -The patient denied history of CHF or coronary artery disease. Notes she is able to go up a flight of stairs without getting short of breath and is able to partake in all her ADLs with METS > 4. Denied syncope, chest pain, palpitation. -EKG and laboratory workup reviewed. -The patient is scheduled to undergo orthopedic repair of the left femur -The patient is low to moderate risk for a moderate risk procedure within no modifiable risk factors
[2020-02-14] MEDS: MORPHINE SULFATE 4 MG/ML SYRINGE IV PRN ×3 (02:13→12:45)
[2020-02-14] MEDS: atenoloL 50 MG TAB PO SCH (08:45)
[2020-02-14] MEDS: amLODIPine 10 MG TAB PO SCH (08:45)
--- NOTE | 2020-02-14 11:15 | P.HPOR ---
History of Present Illness H&P Date: 02/14/20 Chief Complaint: Left femoral neck fracture Patient is a pleasant 79 yo female seen at bedside this am. She states she was taking out her trash last evening when she tripped and landed on her left side. She developed immediate left hip pain and inability to ambulate. She was transported to [facility] ED where xrays show a left subcapital femoral neck fracture. She continues with left hip pain this morning as expected. She denies radicular symptoms including numbness or tingling. She has no calf pain. She has no other complaints this morning. Review of Systems All systems: negative Constitutional: Denies chills, Denies fever Eyes: denies blurred vision, denies pain Ears, nose, mouth and throat: Denies headache, Denies sore throat Cardiovascular: Denies chest pain, Denies shortness of breath Respiratory: Denies cough Gastrointestinal: Denies abdominal pain, Denies diarrhea, Denies nausea, Denies vomiting Genitourinary: Denies dysuria, Denies hematuria Musculoskeletal: Denies myalgias Integumentary: Denies pruritus, Denies rash Neurological: Denies numbness, Denies weakness Psychiatric: Denies anxiety, Denies depression Endocrine: Denies fatigue, Denies weight change Past Medical History Past Medical History: Hypertension Additional Past Medical History / Comment(s): Falls History of Any Multi-Drug Resistant Organisms: None Reported Past Surgical History: Cholecystectomy, Hysterectomy Additional Past Surgical History / Comment(s): D&C Past Anesthesia/Blood Transfusion Reactions: No Reported Reaction Past Psychological History: No Psychological Hx Reported Past Alcohol Use History: None Reported Past Drug Use History: None Reported - Past Family History Father Family Medical History: Coronary Artery Disease (CAD) family Family Medical History: No Reported History Medications and Allergies Home Medications Medication Instructions Recorded Confirmed Type Calcium Carbonate/Vitamin D3 1 tab PO BID 06/15/14 02/13/20 History [Caltrate 600 Plus D3 Tablet] Multivit-Minerals/Folic Acid [One 1 tab PO DAILY 06/15/14 02/13/20 History Daily Womens 50 Plus Tab] amLODIPine BESYLATE [Norvasc] 10 mg PO DAILY 06/15/14 02/13/20 History atenoloL [Tenormin] 50 mg PO DAILY 06/15/14 02/13/20 History Alendronate Sodium [Fosamax] 70 mg PO MO 03/23/18 02/13/20 History Losartan Potassium 100 mg PO DAILY 03/23/18 02/13/20 History Allergies Allergy/AdvReac Type Severity Reaction Status Date / Time No Known Allergies Allergy Verified 02/13/20 19:16 Physical Examination Inspection of left lower extremity shows a shortened externally rotated left leg. There are no wounds, erythema or lacerations. Range of motion of the left hip is not tested due to fracture. Neurovascular status intact with motor and sensation throughout left lower extremity. Calf is soft and nontender. 2+ dorsalis pedis pulse and less than 2 sec cap refill. Results Xrays of the hip and pelvis show an impacted left subcapital femoral neck fracture. - Labs Labs: Abnormal Lab Results - Last 24 Hours (Table) 02/13/20 02/13/20 02/13/20 Range/Units 18:52 18:52 19:10 APTT 21.8 L (22.0-30.0) sec BUN 24 H (7-17) mg/dL Glucose 127 H (74-99) mg/dL Urine Protein Trace H (Negative) H & H 02/13/20 Range/Units 18:52 Hgb 14.3 (11.4-16.0) gm/dL Hct 43.3 (34.0-46.0) % Coagulation 02/13/20 Range/Units 18:52 INR 0.9 (<1.2) Result Diagrams: 02/13/20 18:52 02/13/20 18:52 - Diagnostic results Hip x-ray: report reviewed, image reviewed Assessment and Plan (1) Fracture of femoral neck, left, closed Narrative/Plan: Plan will be to proceed with surgical intervention this afternoon including left hip hemiarthroplasty for her hip fracture. She has been cleared medically. She will continue pain management, DVT prophylaxis and medical management. Current Visit: Yes Status: Acute Code(s): S72.002A - FRACTURE OF UNSP PART OF NECK OF LEFT FEMUR, INIT SNOMED Code(s): 202323387 Time with Patient: Less than 30
[2020-02-14] MEDS: SODIUM CHLORIDE 0.9% 1,000 ML IV SCH (13:21)
[2020-02-14] MEDS ORDERED: MAGNESIUM HYDROXIDE 2,400 MG/10 ML CUP PO PRN (14:20)
[2020-02-14] MEDS ORDERED: HYDROmorphone 0.5 MG/0.5 ML SYRINGE IVP PRN ×2 (14:20)
[2020-02-14] MEDS ORDERED: diazePAM 5 MG TAB PO PRN (14:20)
[2020-02-14] MEDS ORDERED: HYDROcodone/APAP 10-325MG 1 EACH TAB PO PRN (14:20)
[2020-02-14] MEDS ORDERED: ACETAMINOPHEN TAB 325 MG TAB PO PRN (14:20)
[2020-02-14] MEDS ORDERED: TEMAZEPAM 15 MG CAP PO PRN (14:20)
[2020-02-14] MEDS ORDERED: traMADol 50 MG TAB PO PRN (14:20)
[2020-02-14] MEDS: HYDROmorphone 0.5 MG/0.5 ML SYRINGE IVP PRN ×2 (16:12→21:46)
--- NOTE | 2020-02-14 16:50 | P.PN ---
Subjective Progress Note Date: 02/14/20 (delayed charting seen at 1140) Principal diagnosis: hip pain Patient is a 79-year-old female with a past medical history of hypertension, falls, and osteoporosis who presented to the emergency department after a fall with left hip pain. In the ER she underwent an extensive evaluation. On arrival she was hypertensive with a blood pressure of 170/88. Laboratory analysis was essentially unremarkable. Urine negative. She showed no acute process. Hip x-ray demonstrated a left impacted subcapital femoral fracture. She was started on IV fluids and pain medications area she was admitted to orthopedic surgery. We are asked to consult for medical management. Patient seen and examined at bedside. She denies any chest pain, shortness breath, nausea, vomiting, or diarrhea. Her pain is currently well controlled. She is anxious about being able to go home. Her handicapped son. General: Nontoxic, mild distress secondary to pain, appears at stated age Derm: warm, dry Head: atraumatic, normocephalic, symmetric Eyes: EOMI, no lid lag, anicteric sclera Mouth: no lip lesion, mucus membranes moist Cardiovascular: S1S2 reg, no murmur, positive posterior tibial pulse bilateral, Lungs: CTA bilateral, no rhonchi, no rales , no accessory muscle use Abdominal: soft, nontender to palpation, no guarding, no appreciable organomegaly Ext: no gross muscle atrophy, 2+ edema, no contractures Neuro: CN II-XI grossly intact, no focal neuro deficits Psych: Alert, oriented, appropriate affect Patient is a 79-year-old female with a left subcapital hip fracture plans are for operative management. Hypertension, controlled -Atenolol, Norvasc, losartan -Follow blood pressures Status post mechanical fall -PT/OT -Check orthostatics after surgery -Fall precautions Osteoporosis -Continue with Fosamax once hip fracture is healed Thank you for allowing us to participate in the care of this pleasant patient. Do not hesitate to contact us with questions. Someone can be reached from the [facility] hospitalist group all hours of the day at [phone] or via [employer]. Objective - Vital Signs Vital signs: Vital Signs Temp 99.3 F 02/14/20 14:58 Pulse 69 02/14/20 14:58 Resp 17 02/14/20 14:58 BP 177/77 02/14/20 14:58 Pulse Ox 94 L 02/14/20 12:51 Intake & Output 02/13/20 02/14/20 02/14/20 18:59 06:59 18:59 Output Total 650 1800 Balance -650 -1800 Weight 97.069 kg Output: Urine 650 1800 Other: Voiding Method Indwelling Catheter Indwelling Catheter # Voids 1 - Labs CBC & Chem 7: 02/13/20 18:52 02/13/20 18:52 Labs: Abnormal Lab Results - Last 24 Hours (Table) 02/13/20 02/13/20 02/13/20 Range/Units 18:52 18:52 19:10 APTT 21.8 L (22.0-30.0) sec BUN 24 H (7-17) mg/dL Glucose 127 H (74-99) mg/dL Urine Protein Trace H (Negative)
[2020-02-14] MEDS: SENNOSIDES-DOCUSATE SODIUM 1 EACH TAB PO SCH (21:47)
[2020-02-15] MEDS: SODIUM CHLORIDE 0.9% 1,000 ML IV SCH ×2 (03:12→16:56)
[2020-02-15] MEDS: HYDROmorphone 0.5 MG/0.5 ML SYRINGE IVP PRN ×2 (05:06→09:41)
[2020-02-15 07:01] LABS: Basophils % (A) 0 %; Eosinophils # (A) 0.4 k/uL (0-0.7); Eosinophils % (A) 4 %; HCT 40.5 % (34.0-46.0); HGB 13.5 gm/dL (11.4-16.0); Lymphocytes # (A) 1.4 k/uL (1.0-4.8); Lymphocytes % (A) 14 %; MCH 31.9 pg (25.0-35.0); MCHC 33.3 g/dL (31.0-37.0); Mean Platelet Volume 8.4; Monocytes # (A) 0.6 k/uL (0-1.0); Monocytes % (A) 7 %; Neutrophils # (A) 7.1 k/uL (1.3-7.7); Neutrophils % (A) 74 %; Platelet Count 173 k/uL (150-450); RBC 4.22 m/uL (3.80-5.40); RDW 14.2 % (11.5-15.5); WBC 9.6 k/uL (3.8-10.6)
[2020-02-15] MEDS: amLODIPine 10 MG TAB PO SCH ×2 (07:05→09:36)
[2020-02-15] MEDS: atenoloL 50 MG TAB PO SCH ×2 (07:05→09:36)
[2020-02-15] MEDS: MULTIVITAMINS, THERA 1 EACH TAB PO SCH (12:19)
[2020-02-15] MEDS ORDERED: IV FLUID CONTINUATION 1,000 ML IV ONE (12:23)
[2020-02-15] MEDS ORDERED: ONDANSETRON 4 MG/2 ML VIAL IVP ONE (13:13)
[2020-02-15] MEDS ORDERED: DEXAMETHASONE SOD PHOSPHATE 10 MG/ML 1 ML VIAL IV ONE (13:14)
[2020-02-15] MEDS ORDERED: TRANEXAMIC ACID 1,000 MG/10 ML VIAL ONE (13:29)
[2020-02-15] MEDS ORDERED: SODIUM CHLORIDE 0.9% 100 ML BAG ONE (13:29)
[2020-02-15] MEDS ORDERED: KETAMINE 10 MG/ML 20 ML VIAL ONE (13:29)
[2020-02-15] MEDS ORDERED: MIDAZOLAM 2 MG/2 ML VIAL ONE (13:29)
[2020-02-15] MEDS ORDERED: fentaNYL (PF) 50 MCG/ML 2 ML AMP ONE (13:29)
--- NOTE | 2020-02-15 14:25 | P.PN ---
Subjective Progress Note Date: 02/15/20 (deleayed charting seen at 1000) Principal diagnosis: hip pain Patient is a 79-year-old female with a past medical history of hypertension, falls, and osteoporosis who presented to the emergency department after a fall with left hip pain. In the ER she underwent an extensive evaluation. On arrival she was hypertensive with a blood pressure of 170/88. Laboratory analysis was essentially unremarkable. Urine negative. She showed no acute process. Hip x-ray demonstrated a left impacted subcapital femoral fracture. She was started on IV fluids and pain medications area she was admitted to orthopedic surgery. We are asked to consult for medical management. Patient seen and examined at bedside. Having left hip pain. No chest pain, SOB, Nausea. General: Nontoxic, mild distress secondary to pain, appears at stated age Derm: warm, dry Head: atraumatic, normocephalic, symmetric Eyes: EOMI, no lid lag, anicteric sclera Mouth: no lip lesion, mucus membranes moist Cardiovascular: S1S2 reg, no murmur, positive posterior tibial pulse bilateral, Lungs: CTA bilateral, no rhonchi, no rales , no accessory muscle use Abdominal: soft, nontender to palpation, no guarding, no appreciable organomegaly Ext: no gross muscle atrophy, 1+ edema, no contractures Neuro: CN II-XI grossly intact, no focal neuro deficits Psych: Alert, oriented, appropriate affect Patient is a 79-year-old female with a left subcapital hip fracture plans are for operative management. Hypertension, controlled -Atenolol, Norvasc, losartan -Follow blood pressures Status post mechanical fall -PT/OT -Check orthostatics after surgery -Fall precautions Osteoporosis -Continue with Fosamax once hip fracture is healed Thank you for allowing us to participate in the care of this pleasant patient. Do not hesitate to contact us with questions. Someone can be reached from the [facility] hospitalist group all hours of the day at [phone] or via [employer]. Objective - Vital Signs Vital signs: Vital Signs Temp 98.2 F 02/15/20 12:25 Pulse 69 02/15/20 12:25 Resp 16 02/15/20 12:25 BP 163/72 02/15/20 12:25 Pulse Ox 94 L 02/15/20 12:25 Intake & Output 02/14/20 02/15/2002/14/20 18:59 06:59 18:59 Intake Total 800 Output Total 1800 1200 Balance -1800 -1200 800 Weight 97.069 kg Intake: IV 800 Output: Urine 1800 1200 Other: Voiding Method Indwelling Catheter Indwelling Catheter Indwelling Catheter # Voids 1 - Labs CBC & Chem 7: 02/15/20 05:28 02/13/20 18:52
[2020-02-15] MEDS: TRANEXAMIC ACID 1,000 MG in SODIUM CHLORIDE 0.9% 100 ML IVPB SCH (15:00)
[2020-02-15] MEDS ORDERED: HYDROmorphone 0.5 MG/0.5 ML SYRINGE IVP ONE (15:49)
--- NOTE | 2020-02-15 16:10 | XR ---
EXAMINATION TYPE: XR Hip Limited LT DATE OF EXAM: 02/15/2020 COMPARISON: NONE HISTORY: 79-year-old female status post hip surgery, assess surgical alignment. TECHNIQUE: Portable AP view. FINDINGS: Image demonstrates placement of left hip hemiarthroplasty. There seems to be some underlying circumfe rential narrowing of the acetabular articular cartilage. Scattered foci of soft tissue air related to recent operation. Femoral stem component is well seated. Alignment grossly anatomic. IMPRESSION: Uncomplicated postoperative appearance left hip hemiarthroplasty.
[2020-02-15] MEDS: ASPIRIN 81 MG PO SCH (21:37)
[2020-02-15] MEDS: SENNOSIDES-DOCUSATE SODIUM 1 EACH TAB PO SCH (21:37)
--- NOTE | 2020-02-16 02:58 | OP ---
OPERATIVE REPORT DATE OF PROCEDURE: 02/15/2020 SURGEON: Jose Chun MD RENAL CASE MANAGER: JE Jeffries. PREOPERATIVE DIAGNOSIS: Left displaced femoral neck fracture. POSTOPERATIVE DIAGNOSIS: Left displaced femoral neck fracture. PROCEDURE PERFORMED: Left hip hemiarthroplasty. ANESTHESIA: Spinal with sedation. ESTIMATED BLOOD LOSS: 250 mL. TOURNIQUET: None. DRAINS: None. COMPLICATIONS: None apparent. DISPOSITION: Postanesthesia care unit. INDICATIONS: Fariha is a very pleasant 79-year-old female who slipped and fell late in the evening on February 12. She fell onto her left hip. She had immediate pain. She was unable to ambulate. She was brought to [facility] via ambulance. A workup including x- rays revealed a displaced left femoral neck fracture. She was admitted to my service. She is an independent ambulator. She was cleared by the medical service for surgery and she would like to proceed. Risks were explained to the patient which include, but are not limited to risk of infection, nerve damage, bleeding, pain, and a small risk of deep vein thrombosis which could lead to fatal pulmonary embolism. Further risks include periprosthetic fracture, deep infection, and the possibility for hip instability. All of her questions with regards to the risks of procedure were answered to her satisfaction. Appropriate informed consent was obtained. DESCRIPTION OF THE PROCEDURE: The patient was identified in the preoperative holding area. Surgical site was marked by both the patient and myself. She was given 2 grams of Ancef IV for prophylactic purposes. She was then transferred to the operative suite. She was placed supine on the operating room table. A spinal anesthetic was then administered and dosed per the anesthesia department without apparent complication. She was then placed into the right lateral decubitus position well-padded in preparation for surgery. Great care was taken to ensure that her legs were appropriately padded and a well-padded axillary roll was placed as well. The patient's left lower extremity was than prepped and draped in usual sterile fashion. Standard surgical pause was undertaken to ensure that we were operating on the correct site and that appropriate preoperative antibiotics have been given. All staff in the room were agreement and we proceeded. The outlines of the greater trochanter were then marked with surgical pen. A planned 12 cm incision centered over the tip of the greater trochanter in line with the shaft of the femur was then made with a surgical pen. The incision was then made with a 10-blade scalpel. Dissection was carried down sharply to the tensor fascia. Hemostasis was achieved with electrocautery. Tensor fascia was then incised in line with the incision. A Charnley retractor was then placed. This gave good exposure to the greater trochanter. The raphe between the anterior one-third and posterior two-thirds of the gluteus medius was identified. The anterior one-third of the gluteus medius, gluteus minimus and capsule were then taken off in a sleeve in a Hardinge type anterolateral approach. Hematoma was then encountered. I utilized the guide and made a fresh femoral neck cut with a reciprocating saw. The [place] femoral head was then removed with a corkscrew. The acetabulum was inspected. The cartilage of the acetabulum was in good condition. There was no loose debris in the acetabulum. I then measured the [place] femoral head for size. It was measured 52 mm. A 52 mm trial was then placed on the lollipop and then placed in the acetabulum. It had a good suction and fit. We then proceeded with preparation of the proximal femur. The leg was then flexed and externally rotated into the bag of the front of the body. This gave me good exposure to the proximal femur. The proximal femur was then entered with a slip box changer. I then utilized a starting reamer and then reamed incrementally up to an 11 mm reamer where good chatter was encountered. I then proceeded to broach the proximal femur. I started with a size 7 broach and incrementally increased up to a size 11 broach. There was a very good fit. She had very good cortical bone. I then proceeded with a trial. I started with a -3 neck and a 52 head. This was then placed onto the trial broach. The hip was then reduced. The leg lengths were approximately equal. It was very stable throughout a full range of motion. The hip was then redislocated. I decided to proceed with a size 11 Bi-Metric collared press-fit stem, a -3 neck and a 52 monopolar head. The acetabulum was then thoroughly irrigated with sterile saline solution with antibiotic added. The size 11 Bi-Metric stem was then impacted into the proximal femur in approximately 10 degrees of anteversion. It had an excellent press-fit. The Saba taper was then dried. The -3 neck and the 52 monopolar head were assembled on the back table and then it was impacted on a dry femoral neck trunnion. The hip was then carefully reduced. Again, the leg lengths were approximately equal and the hip was very stable throughout a full range of motion. At this point time, we proceeded with closure. Again, the deep wound was irrigated with sterile saline solution with antibiotic added via pulse lavage. The gluteus medius, gluteus minimus and anterior capsule were then repaired back to the greater trochanter utilizing #5 Ethibond transosseous sutures. The raphe between the anterior one-third and posterior two-thirds of the gluteus medius was then closed with 0 Vicryl interrupted suture. The Charnley retractor was then removed. Again the wound was thoroughly irrigated with sterile saline solution with antibiotic added. The tensor fascia was then provisionally closed with 0 Vicryl interrupted sutures and then definitively closed with #2 Quill suture. Again the wound was thoroughly irrigated. The subcutaneous tissue was closed with 2-0 Vicryl interrupted suture. The skin was closed with 3-0 running Quill suture. Dermabond was applied to the incision. A hip abduction pillow was then placed. All sponge and needle counts were deemed correct prior to closure. The patient tolerated procedure without apparent complication. She was transferred to the recovery room in stable condition. MMODL / IJN: [id number] /
[2020-02-16] MEDS: SODIUM CHLORIDE 0.9% 1,000 ML IV SCH (04:28)
[2020-02-16] MEDS: HYDROmorphone 0.5 MG/0.5 ML SYRINGE IVP PRN ×2 (05:04→09:28)
[2020-02-16 06:09] LABS: Basophils % (A) 0 %; Eosinophils % (A) 0 %; HCT 39.8 % (34.0-46.0); HGB 12.4 gm/dL (11.4-16.0); Lymphocytes # (A) 0.8 k/uL (1.0-4.8); Lymphocytes % (A) 7 %; MCH 30.2 pg (25.0-35.0); MCHC 31.2 g/dL (31.0-37.0); Mean Platelet Volume 7.9; Monocytes # (A) 0.8 k/uL (0-1.0); Monocytes % (A) 6 %; Neutrophils # (A) 10.5 k/uL (1.3-7.7); Neutrophils % (A) 87 %; Platelet Count 176 k/uL (150-450); RBC 4.11 m/uL (3.80-5.40); RDW 13.9 % (11.5-15.5); WBC 12.1 k/uL (3.8-10.6)
[2020-02-16] MEDS: ASPIRIN 81 MG PO SCH ×2 (07:22→21:38)
[2020-02-16] MEDS: atenoloL 50 MG TAB PO SCH (07:22)
[2020-02-16] MEDS: MULTIVITAMINS, THERA 1 EACH TAB PO SCH (07:22)
[2020-02-16] MEDS: amLODIPine 10 MG TAB PO SCH (07:22)
[2020-02-16] MEDS: LACTATED RINGERS 1,000 ML IV SCH (09:50)
--- NOTE | 2020-02-16 10:05 | P.PN ---
Subjective Progress Note Date: 02/16/20 Principal diagnosis: Left hip fracture Patient is seen at bedside this morning. She is postop day #1 from left hip hemiarthroplasty. She has pain at the surgical site as expected but denies any new complaints. She denies numbness, tingling or calf pain. Review of systems is negative for fever, chills, chest pain, shortness of breath or other Objective - Vital Signs Vital signs: Vital Signs Temp 97.9 F 02/16/20 07:00 Pulse 58 L 02/16/20 07:00 Resp 20 02/16/20 07:00 BP 104/56 02/16/20 07:00 Pulse Ox 97 02/16/20 07:00 Intake & Output 02/15/20 02/16/20 02/16/20 18:59 06:59 18:59 Intake Total 550 300 200 Output Total 350 600 Balance 200 -300 200 Weight 97.069 kg Intake: IV 550 Intake, IV Titration 300 Amount Sodium Chloride 0.9% 1, 300 000 ml @ 75 mls/hr IV . [id number] [facility] Rx#:[id number] Oral 0 200 Output: Urine 100 600 Estimated Blood Loss 250 Other: Voiding Method Indwelling Catheter Indwelling Catheter Indwelling Catheter - Exam Inspection reveals a benign surgical wound. There is no active bleeding or drainage. Neurovascular status is intact throughout the lower extremity with motor and sensation fully intact. Calf is soft and nontender. 2+ dorsalis pedis pulse and less than 2 second cap refill is present. - Constitutional General appearance: Present: no acute distress - Labs CBC & Chem 7: 02/16/20 05:26 02/13/20 18:52 Labs: Abnormal Lab Results - Last 24 Hours (Table) 02/16/20 Range/Units 05:26 WBC 12.1 H (3.8-10.6) k/uL Neutrophils # 10.5 H (1.3-7.7) k/uL Lymphocytes # 0.8 L (1.0-4.8) k/uL Assessment and Plan (1) Fracture of femoral neck, left, closed Narrative/Plan: She will continue with routine postop orthopedic protocol including pain management, wound care, PT, DVT prophylaxis and medical management. Expect that she will transfer to rehab in next 1-2 days Current Visit: Yes Status: Acute Priority: Medium Code(s): S72.002A - FRACTURE OF UNSP PART OF NECK OF LEFT FEMUR, INIT SNOMED Code(s): 539298486 Time with Patient: Less than 30
--- NOTE | 2020-02-16 18:10 | P.PN ---
Subjective Progress Note Date: 02/16/20 Patient was seen and examined. No acute events overnight. Patient reports 7 out of 10 severity pain in her left hip. Pain is mostly with ambulation and movement. She denies any chest pain, shortness breath or palpitations. No nausea or vomiting. No fever or chills. Objective - Vital Signs Vital signs: Vital Signs Temp 97.6 F 02/16/20 15:00 Pulse 63 02/16/20 15:00 Resp 20 02/16/20 15:00 BP 107/64 02/16/20 15:00 Pulse Ox 100 02/16/20 15:00 Intake & Output 02/15/20 02/16/20 02/16/20 18:59 06:59 18:59 Intake Total 550 300 400 Output Total 350 600 Balance 200 -300 400 Weight 97.069 kg Intake: IV 550 Intake, IV Titration 300 Amount Sodium Chloride 0.9% 1, 300 000 ml @ 75 mls/hr IV . [id number] [facility] Rx#:[id number] Oral 0 400 Output: Urine 100 600 Estimated Blood Loss 250 Other: Voiding Method Indwelling Catheter Indwelling Catheter Indwelling Catheter # Voids 3 - Exam General: [non toxic], [no distress], [appears at stated age] Derm: [warm], [dry] Head: [atraumatic], [normocephalic], [symmetric] Eyes: [EOMI], [no lid lag], [anicteric sclera] Mouth: [no lip lesion], [mucus membranes moist] Cardiovascular: [S1S2 reg], [no murmur], [positive posterior tibial pulse bilateral], Lungs: [CTA bilateral], [no rhonchi, no rales] , [no accessory muscle use] Abdominal: [soft], [ nontender to palpation], [no guarding], [no appreciable organomegaly] Ext: [no gross muscle atrophy], [1+ pitting lower extremity edema], [no contractures] Neuro: [no focal neuro deficits] Psych: [Alert], [oriented], [appropriate affect] - Labs CBC & Chem 7: 02/16/20 05:26 02/13/20 18:52 Labs: Abnormal Lab Results - Last 24 Hours (Table) 02/16/20 Range/Units 05:26 WBC 12.1 H (3.8-10.6) k/uL Neutrophils # 10.5 H (1.3-7.7) k/uL Lymphocytes # 0.8 L (1.0-4.8) k/uL Assessment and Plan Assessment: Hypertension, controlled -Atenolol, Norvasc, losartan -Follow blood pressures Leukocytosis Likely reactive. No signs of active infection. Continue to monitor. Status post mechanical fall -PT/OT -Fall precautions Osteoporosis -Continue with Fosamax once hip fracture is healed Thank you for allowing us to participate in the care of this pleasant patient. Do not hesitate to contact us with questions. Someone can be reached from the [facility] hospitalist group all hours of the day at [phone] or via [employer].
[2020-02-16] MEDS: HYDROcodone/APAP 5-325MG 1 EACH TAB PO PRN (21:33)
[2020-02-17] MEDS: SODIUM CHLORIDE 0.9% 1,000 ML IV SCH ×2 (01:48→07:43)
[2020-02-17] MEDS: SENNOSIDES-DOCUSATE SODIUM 1 EACH TAB PO SCH ×2 (01:48→20:57)
[2020-02-17 06:57] LABS: Neutrophils % (M) 78 %; Nucleated Red Blood Cells 0 /100 WBC (0-0); Total Cells Counted 100
[2020-02-17 06:59] LABS: HGB 11.5 gm/dL (11.4-16.0); Lymphocytes # (M) 1.26 k/uL (1.0-4.8); MCH 30.9 pg (25.0-35.0); MCV 96.6 fL (80.0-100.0); Mean Platelet Volume 8.3; Monocytes # (M) 0.78 k/uL (0-1.0); Neutrophils # (M) 7.57 k/uL (1.3-7.7); Platelet Count 166 k/uL (150-450); RBC 3.73 m/uL (3.80-5.40); RDW 14.2 % (11.5-15.5); WBC 9.7 k/uL (3.8-10.6)
[2020-02-17] MEDS: amLODIPine 10 MG TAB PO SCH (07:44)
[2020-02-17] MEDS: MULTIVITAMINS, THERA 1 EACH TAB PO SCH (07:44)
[2020-02-17] MEDS: HYDROcodone/APAP 5-325MG 1 EACH TAB PO PRN ×2 (07:44→14:40)
[2020-02-17] MEDS: atenoloL 50 MG TAB PO SCH (07:44)
[2020-02-17] MEDS: ASPIRIN 81 MG PO SCH ×2 (07:44→20:57)
--- NOTE | 2020-02-17 09:17 | P.PN ---
Subjective Progress Note Date: 02/17/20 Principal diagnosis: Femoral neck fracture left hip. Status post hemiarthroplasty left hip. This is a 79-year-old female who is postoperative day #2 status post hemiarthroplasty of the left hip. She is to person assist at this time. She is having significant pain with any attempt to ambulate. She is currently on 3 L of O2 per nasal cannula. Vital signs and labs are stable today. Objective - Vital Signs Vital signs: Vital Signs Temp 97.9 F 02/17/20 07:00 Pulse 73 02/17/20 07:00 Resp 20 02/17/20 07:00 BP 171/89 02/17/20 07:00 Pulse Ox 96 02/17/20 07:00 Intake & Output 02/16/20 02/17/20 02/17/20 18:59 06:59 18:59 Intake Total 400 600 Output Total 1300 Balance 400 -700 Intake: Intake, IV Titration 300 Amount Sodium Chloride 0.9% 1, 300 000 ml @ 75 mls/hr IV . [id number] [facility] Rx#:[id number] Oral 400 300 Output: Urine 1300 Other: Voiding Method Indwelling Catheter Indwelling Catheter # Voids 3 - Exam This is a pleasant 79-year-old female in no acute distress. She is alert and oriented 3. Exam of the left hip reveals that her dressing is clean, dry and intact. There is no surrounding erythema or ecchymosis. She has mild soft tissue swelling in the thigh. She has full foot and ankle motion without difficulty or pain. Pain with palpation. Pedal pulse is +2/4. Neurovascular status to the lower extremity is intact. - Labs CBC & Chem 7: 02/17/20 05:42 02/13/20 18:52 Labs: Abnormal Lab Results - Last 24 Hours (Table) 02/17/20 Range/Units 05:42 RBC 3.73 L (3.80-5.40) m/uL Assessment and Plan (1) History of hemiarthroplasty of left hip Current Visit: Yes Status: Acute Code(s): Z96.642 - PRESENCE OF LEFT ARTIFICIAL HIP JOINT SNOMED Code(s): 797753555 (2) Fall Current Visit: Yes Status: Acute Priority: High Code(s): W19.XXXA - UNSPECIFIED FALL, INITIAL ENCOUNTER SNOMED Code(s): 2700935 (3) Fracture of femoral neck, left, closed Current Visit: Yes Status: Acute Priority: Medium Code(s): S72.002A - FRACTURE OF UNSP PART OF NECK OF LEFT FEMUR, INIT SNOMED Code(s): 616574794 Plan: The clinical findings are discussed with the patient. She is rating her pain 10/10. Dupont is still in place. She most likely will be transferred to inpatient rehab on Wednesday. I've encouraged nursing try to get her Dupont catheter out today if possible. Continue physical therapy.
[2020-02-17] MEDS: LACTATED RINGERS 1,000 ML IV SCH (10:04)
--- NOTE | 2020-02-17 18:39 | P.PN ---
Subjective Progress Note Date: 02/17/20 Patient was seen and examined. No acute events overnight. Patient reports 6 out of 10 severity pain in her left hip. Pain is mostly with ambulation and movement. She denies any chest pain, shortness breath or palpitations. No nausea or vomiting. No fever or chills. Objective - Vital Signs Vital signs: Vital Signs Temp 98.0 F 02/17/20 15:00 Pulse 71 02/17/20 15:00 Resp 20 02/17/20 15:00 BP 131/71 02/17/20 15:00 Pulse Ox 98 02/17/20 15:00 Intake & Output 02/16/20 02/17/20 02/17/20 18:59 06:59 18:59 Intake Total 400 600 160 Output Total 1300 Balance 400 -700 160 Intake: IV 160 Lactated Ringers 1,000 ml 160 @ 20 mls/hr IV .Q24H [facility] Rx#:[id number] Intake, IV Titration 300 Amount Sodium Chloride 0.9% 1, 300 000 ml @ 75 mls/hr IV . [id number] [facility] Rx#:[id number] Oral 400 300 Output: Urine 1300 Other: Voiding Method Indwelling Catheter Indwelling Catheter Indwelling Catheter # Voids 3 - Exam General: [non toxic], [no distress], [appears at stated age] Derm: [warm], [dry] Head: [atraumatic], [normocephalic], [symmetric] Eyes: [EOMI], [no lid lag], [anicteric sclera] Mouth: [no lip lesion], [mucus membranes moist] Cardiovascular: [S1S2 reg], [no murmur], [positive posterior tibial pulse bilateral], Lungs: [CTA bilateral], [no rhonchi, no rales] , [no accessory muscle use] Abdominal: [soft], [ nontender to palpation], [no guarding], [no appreciable organomegaly] Ext: [no gross muscle atrophy], [1+ pitting lower extremity edema], [no contractures] Neuro: [no focal neuro deficits] Psych: [Alert], [oriented], [appropriate affect] - Labs CBC & Chem 7: 02/17/20 05:42 02/13/20 18:52 Labs: Abnormal Lab Results - Last 24 Hours (Table) 02/17/20 Range/Units 05:42 RBC 3.73 L (3.80-5.40) m/uL Assessment and Plan Assessment: Hypertension, controlled -Atenolol, Norvasc, losartan -Follow blood pressures Status post mechanical fall -PT/OT -Fall precautions Osteoporosis -Continue with Fosamax once hip fracture is healed Resolved: Leukocytosis Thank you for allowing us to participate in the care of this pleasant patient. Do not hesitate to contact us with questions. Someone can be reached from the [facility] hospitalist group all hours of the day at [phone] or via [employer].
[2020-02-18] MEDS: HYDROcodone/APAP 5-325MG 1 EACH TAB PO PRN ×3 (03:31→20:13)
[2020-02-18 06:07] LABS: Basophils % (A) 0 %; Eosinophils # (A) 0.5 k/uL (0-0.7); Eosinophils % (A) 5 %; HCT 36.5 % (34.0-46.0); HGB 11.8 gm/dL (11.4-16.0); Lymphocytes # (A) 1.5 k/uL (1.0-4.8); Lymphocytes % (A) 16 %; MCH 31.2 pg (25.0-35.0); MCHC 32.4 g/dL (31.0-37.0); MCV 96.3 fL (80.0-100.0); Mean Platelet Volume 7.9; Monocytes # (A) 0.8 k/uL (0-1.0); Monocytes % (A) 9 %; Neutrophils # (A) 6.3 k/uL (1.3-7.7); Neutrophils % (A) 68 %; Platelet Count 174 k/uL (150-450); RBC 3.79 m/uL (3.80-5.40); RDW 13.7 % (11.5-15.5); WBC 9.3 k/uL (3.8-10.6)
[2020-02-18] MEDS: amLODIPine 10 MG TAB PO SCH (07:33)
[2020-02-18] MEDS: atenoloL 50 MG TAB PO SCH (07:33)
[2020-02-18] MEDS: MULTIVITAMINS, THERA 1 EACH TAB PO SCH (07:33)
[2020-02-18] MEDS: ASPIRIN 81 MG PO SCH ×2 (07:33→20:13)
--- NOTE | 2020-02-18 11:21 | P.PN ---
Subjective Progress Note Date: 02/18/20 Principal diagnosis: Femoral neck fracture left hip. Status post hemiarthroplasty left hip. This is a 79-year-old female who is postoperative day #3 status post hemiarthroplasty of the left hip. She is 2 person assist at this time. She is having significant pain with any attempt to ambulate. She is on 3 L of O2 per nasal cannula. Vital signs and labs are stable today. Objective - Vital Signs Vital signs: Vital Signs Temp 97.8 F 02/18/20 07:31 Pulse 75 02/18/20 07:31 Resp 20 02/18/20 07:31 BP 133/71 02/18/20 07:31 Pulse Ox 97 02/18/20 07:31 Intake & Output 02/17/20 02/18/20 02/18/20 18:59 06:59 18:59 Intake Total 160 Output Total 650 Balance 160 -650 Intake: IV 160 Lactated Ringers 1,000 ml 160 @ 20 mls/hr IV .Q24H [facility] Rx#:[id number] Output: Urine 650 Other: Voiding Method Indwelling Catheter # Voids 1 - Exam This is a pleasant 79-year-old female in no acute distress. She is sitting up in a chair and appears fairly comfortable. She is alert and oriented 3. Exam of the left hip reveals that her dressing is clean, dry and intact. There is no surrounding erythema or ecchymosis. She has mild soft tissue swelling in the thigh. She has full foot and ankle motion without difficulty or pain. Pain with palpation. Pedal pulse is +2/4. Neurovascular status to the lower extremity is intact. - Labs CBC & Chem 7: 02/18/20 05:57 02/13/20 18:52 Labs: Abnormal Lab Results - Last 24 Hours (Table) 02/18/20 Range/Units 05:57 RBC 3.79 L (3.80-5.40) m/uL Assessment and Plan (1) History of hemiarthroplasty of left hip Current Visit: Yes Status: Acute Code(s): Z96.642 - PRESENCE OF LEFT ARTIFICIAL HIP JOINT SNOMED Code(s): 850392867 (2) Fall Current Visit: Yes Status: Acute Priority: High Code(s): W19.XXXA - UNSPECIFIED FALL, INITIAL ENCOUNTER SNOMED Code(s): 2803461 (3) Fracture of femoral neck, left, closed Current Visit: Yes Status: Acute Priority: Medium Code(s): S72.002A - FRACTURE OF UNSP PART OF NECK OF LEFT FEMUR, INIT SNOMED Code(s): 177100288 Plan: The clinical findings are discussed with the patient. She is rating her pain 8/10. She most likely will be transferred to inpatient rehab on Wednesday. Continue PT.
--- NOTE | 2020-02-18 16:06 | P.PN ---
Subjective Progress Note Date: 02/18/20 Patient was seen and examined. No acute events overnight. Patient reports 7 out of 10 severity pain in her left hip. Pain is mostly with ambulation and movement. She denies any chest pain, shortness breath or palpitations. No nausea or vomiting. No fever or chills. Objective - Vital Signs Vital signs: Vital Signs Temp 97.7 F 02/18/20 15:31 Pulse 72 02/18/20 15:31 Resp 20 02/18/20 15:31 BP 126/70 02/18/20 15:31 Pulse Ox 93 L 02/18/20 15:31 Intake & Output 02/17/20 02/18/20 02/18/20 18:59 06:59 18:59 Intake Total 160 Output Total 650 Balance 160 -650 Intake: IV 160 Lactated Ringers 1,000 ml 160 @ 20 mls/hr IV .Q24H [facility] Rx#:[id number] Output: Urine 650 Other: Voiding Method Indwelling Catheter # Voids 1 3 - Exam General: [non toxic], [no distress], [appears at stated age] Derm: [warm], [dry] Head: [atraumatic], [normocephalic], [symmetric] Eyes: [EOMI], [no lid lag], [anicteric sclera] Mouth: [no lip lesion], [mucus membranes moist] Cardiovascular: [S1S2 reg], [no murmur], [positive posterior tibial pulse bilateral], Lungs: [CTA bilateral], [no rhonchi, no rales] , [no accessory muscle use] Abdominal: [soft], [ nontender to palpation], [no guarding], [no appreciable organomegaly] Ext: [no gross muscle atrophy], [1+ pitting lower extremity edema], [no contrac tures] Neuro: [no focal neuro deficits] Psych: [Alert], [oriented], [appropriate affect] - Labs CBC & Chem 7: 02/18/20 05:57 02/13/20 18:52 Labs: Abnormal Lab Results - Last 24 Hours (Table) 02/18/20 Range/Units 05:57 RBC 3.79 L (3.80-5.40) m/uL Assessment and Plan Assessment: Hypertension, controlled -Atenolol, Norvasc, losartan -Follow blood pressures Status post mechanical fall -PT/OT -Fall precautions Osteoporosis -Continue with Fosamax once hip fracture is healed Resolved: Leukocytosis Thank you for allowing us to participate in the care of this pleasant patient. Do not hesitate to contact us with questions. Someone can be reached from the [facility] hospitalist group all hours of the day at [phone] or via [employer]. Plans for transfer to rehab tomorrow.
[2020-02-18] MEDS: SENNOSIDES-DOCUSATE SODIUM 1 EACH TAB PO SCH (20:13)
[2020-02-19] MEDS: HYDROcodone/APAP 5-325MG 1 EACH TAB PO PRN ×2 (00:25→09:18)
[2020-02-19 07:06] LABS: Basophils # (A) 0.1 k/uL (0-0.2); Basophils % (A) 1 %; Eosinophils # (A) 0.4 k/uL (0-0.7); Eosinophils % (A) 4 %; HCT 35.9 % (34.0-46.0); HGB 11.7 gm/dL (11.4-16.0); Lymphocytes # (A) 1.7 k/uL (1.0-4.8); Lymphocytes % (A) 19 %; MCH 31.2 pg (25.0-35.0); MCHC 32.5 g/dL (31.0-37.0); MCV 96.1 fL (80.0-100.0); Mean Platelet Volume 7.9; Monocytes # (A) 0.7 k/uL (0-1.0); Monocytes % (A) 8 %; Neutrophils # (A) 6.1 k/uL (1.3-7.7); Neutrophils % (A) 67 %; Platelet Count 202 k/uL (150-450); RBC 3.73 m/uL (3.80-5.40); RDW 13.9 % (11.5-15.5)
[2020-02-19 07:57] VITALS: BP 131/79; PULSE 84; RESP 18; TEMP 98.7
[2020-02-19] MEDS: ASPIRIN 81 MG PO SCH (09:17)
[2020-02-19] MEDS: amLODIPine 10 MG TAB PO SCH (09:18)
[2020-02-19] MEDS: atenoloL 50 MG TAB PO SCH (09:18)
[2020-02-19] MEDS: MULTIVITAMINS, THERA 1 EACH TAB PO SCH (11:51)
--- NOTE | 2020-02-19 12:39 | P.DS ---
Providers Date of admission: 02/13/20 18:26 Expected date of discharge: 02/19/20 Attending physician: Jose Chun Consults: 02/13/20 18:23 Consult Physician Urgent Consulting Provider: Maritza Orozco Consult Reason/Comments: Surgical clearance Do you want consulting provider notified?: Yes Primary care physician: Channing Lorenzo MD - Discharge Diagnosis(es) (1) Fracture of femoral neck, left, closed Patient was admitted to the OR on 02/15/2020 to undergo a left hip april- arthroplasty for left hip fracture. She desired to proceed with elective surgery after given informed consent. She underwent the above procedure which she tolerated well without complication. Postoperative hospital course has remained without complication. On day of discharge she is afebrile, vital signs stable, labs within acceptable ranges, tolerating by mouth meds and diet, voiding without difficulty, positive flatus, denies abdominal pain or calf pain, pain is controlled on oral pain medication and has no new complaints. Wound is benign, neurovascular status is intact, calf is soft and nontender, abdomen soft and nontender. Review of systems is negative for numbness, tingling, fever, chills, chest pain, shortness of breath, nausea, vomiting, dizziness, headaches, slurred speech or other. Current Visit: Yes Status: Acute Priority: Medium Procedures: Left hip hemiarthroplasty Patient Condition at Discharge: Fair Plan - Discharge Summary Discharge Rx Participant: No New Discharge Prescriptions: New Aspirin [Adult Low Dose Aspirin EC] 81 mg PO BID #60 tablet. HYDROcodone/APAP 7.5-325MG [[place] 7.5-325] 1 - 2 each PO Q6HR PRN #56 tab PRN Reason: Pain Sennosides-Docusate Sodium [Senokot-S] 2 each PO HS tab Acetaminophen Tab [Tylenol] 650 mg PO Q4HR PRN tab PRN Reason: Pain Scale 1 To 5 Continue amLODIPine BESYLATE [Norvasc] 10 mg PO DAILY atenoloL [Tenormin] 50 mg PO DAILY Multivit-Minerals/Folic Acid [One Daily Womens 50 Plus Tab] 1 tab PO DAILY Calcium Carbonate/Vitamin D3 [Caltrate 600 Plus D3 Tablet] 1 tab PO BID Losartan Potassium 100 mg PO DAILY Discontinued Alendronate Sodium [Fosamax] 70 mg PO MO Discharge Medication List Calcium Carbonate/Vitamin D3 [Caltrate 600 Plus D3 Tablet] 1 tab PO BID 06/15/14 [History] Multivit-Minerals/Folic Acid [One Daily Womens 50 Plus Tab] 1 tab PO DAILY 06/15/14 [History] amLODIPine BESYLATE [Norvasc] 10 mg PO DAILY 06/15/14 [History] atenoloL [Tenormin] 50 mg PO DAILY 06/15/14 [History] Losartan Potassium 100 mg PO DAILY 03/23/18 [History] Aspirin [Adult Low Dose Aspirin EC] 81 mg PO BID #60 tablet. 02/16/20 [Rx] HYDROcodone/APAP 7.5-325MG [[place] 7.5-325] 1 - 2 each PO Q6HR PRN #56 tab 1 [Rx] Acetaminophen Tab [Tylenol] 650 mg PO Q4HR PRN tab 02/19/20 [Rx] Sennosides-Docusate Sodium [Senokot-S] 2 each PO HS tab 02/19/20 [Rx] Follow up Appointment(s)/Referral(s): Channing Lorenzo MD [Primary Care Provider] - 1-2 days Jeanette Farah [NON-STAFF] - As Needed Jose Chun MD [STAFF PHYSICIAN] - 10 Days Activity/Diet/Wound Care/Special Instructions: Keep wound clean and dry Take meds as directed Follow-up with Dr. Chun in office Weight bear as tolerated May shower in 3 days if no bleeding Discharge Disposition: HOME WITH HOME HEALTH SERVICES
== END 2020-02-19 15:00 | disposition home health service (06) | DRG 470 ==
LOC: EC 17:39 → 4SSUR 18:26
PROVIDERS: ADMIT Orthopaedic Surgery Sports Medicine; ATTEND Orthopaedic Surgery Sports Medicine
PROC: 0SRB0JA Replacement of Left Hip Joint with Synthetic Substitute, Uncemented, Open Approach (ICD-10-PCS; principal; 2020-02-15 14:00)
DX: S72.012A Unspecified intracapsular fracture of left femur, initial encounter for closed fracture (principal); E78.5 Hyperlipidemia, unspecified; D72.829 Elevated white blood cell count, unspecified; I10 Essential (primary) hypertension; W01.0XXA Fall on same level from slipping, tripping and stumbling without subsequent striking against object, initial encounter; Z96.641 Presence of right artificial hip joint; M81.0 Age-related osteoporosis without current pathological fracture; Z20.828 Contact with and (suspected) exposure to other viral communicable diseases; Z79.83 Long term (current) use of bisphosphonates; Z79.82 Long term (current) use of aspirin; Z79.899 Other long term (current) drug therapy; Z90.49 Acquired absence of other specified parts of digestive tract; Z90.710 Acquired absence of both cervix and uterus; Z82.49 Family history of ischemic heart disease and other diseases of the circulatory system
CPT/HCPCS: 71045; 73501; 73502; 80053; 81003; 85025; 85610; 85730; 86850; 86900; 86901; 87635; 88300; 93005; 96374; 96375; 96376; 99285

== ENCOUNTER → 2021-04-07 | Outpatient (CLI) | payer MEDICARE ==
--- NOTE | 2021-04-07 14:28 | US ---
EXAMINATION TYPE: US venous doppler duplex LE LT DATE OF EXAM: 04/07/2021 2:11 PM COMPARISON: NONE CLINICAL HISTORY: I80.9 Phlebitis, thrombophlebitis. SIDE PERFORMED: Left TECHNIQUE: The lower extremity deep venous system is examined utilizing real time linear array sonog esther with graded compression, doppler sonography and color-flow sonography. VESSELS IMAGED: Common Femoral Vein Deep Femoral Vein Greater Saphenous Vein * Femoral Vein Popliteal Vein Small Saphenous Vein * Proximal Calf Veins (* superficial vessels) Posterior Tibial Vein Peroneal Vein Left Leg: Negative for DVT IMPRESSION: No evidence for DVT.
== END | disposition home or self-care (01) ==
LOC: RADUSWWP 13:51
PROVIDERS: ATTEND Orthopaedic Surgery
DX: I80.9 Phlebitis and thrombophlebitis of unspecified site (principal)

== ENCOUNTER → 2021-07-10 | Outpatient (CLI) | payer MEDICARE ==
--- NOTE | 2021-07-10 09:01 | P.CON ---
Consult Note - . Consult date: 07/10/21 Assessment/Plan:: HISTORY OF PRESENT ILLNESS: 80 -year-old female as a referral from Dr. Garcia presents today with lower back pain due to disc bulges, retrolisthesis, neuroforaminal stenoses, spinal stenosis, facet arthropathy and bilateral L5 abutment for evaluation. Patient states her pain level is 3 out of 10 in intensity, sharp, throbbing, stabbing in the lower aspects of her lumbar spine left to right of midline with radiation of pain to the paraspinal muscles bilaterally. Pain is provoked with weightbearing, standing for periods of 30 minutes or more or lifting. Pain is relieved with medications, topicals, facet blocks of the medial branch injections at Dr. Garcia's office, ice, heat, repositioning, physical therapy of which she is currently an for the last 67 weeks, use of ambulatory devices such as a cane and walker, home stretching regimen and rest. PMH: HTN, Hyperlipidemia PSH: Cholycystectomy, Hysterectomy, R partial hip replacement (2019), L hip replacement s/p Fx in 02/20, BL cataract resection SH: Negative x 3 FH: Non contributory All: NKDA Meds: See list REVIEW OF ORGAN SYSTEMS: CONSTITUTIONAL: No fevers or chills. No recent weight loss. HEENT: No visual acuity loss, eye pain, difficulties with hearing. No nosebleeds. No difficulty swallowing. RESPIRATORY: Denies any troubles with breathing or dyspnea on exertion. CARDIOVASCULAR: Denies any chest pain, palpitations, or recent heart attacks. GASTROINTESTINAL: Denies fatty food intolerance. Has change in bowel habits and gas bloat. GENITOURINARY: Denies any blood in urine. Has increased urinary frequency. NEUROLOGICAL: + numbness and tingling along the distal extremities. No seizure disorders or headaches. MUSCULOSKELETAL: + back pain SKIN: No skin cancer. No rash. PSYCHIATRIC: Denies current depression or suicidal thoughts. ENDOCRINE: Denies current thyroid disorders. Denies any blood sugar glucose intolerance. HEME/LYMPHATIC: Denies any lumps and bumps around the neck. History of deep venous thrombosis. ALLERGY/IMMUNOLOGY: No immunoglobulin therapy. No immune deficiencies. BREAST: Denies current breast lumps, pain or nipple disc harge. Physical Examinations : Constitutional : Cooperative , not in acute distress . HEENT: Neck supple. No Lymphadenopathy. Normal thyroid size . Eyes no ptosis , no icterus, no photophobia . Hearing intact. Normal oropharynx. No Thrush. Respiratory : Chest clear to auscultations bilaterally. No wheezing. No rhonchi. Cardiovascular : Regular rate and rhythm , S1 / S2. No S3 . No S4. Gastrointestinal : Abdomen soft. No tenderness. Bowel sounds x 4. No organomegaly . Genitourinary : Deferred. Neurologic : Cranial nerve II to XII intact. No focal neurological deficits. Psychiatric : alert & oriented x 3. Matching mood & appropriate affect. Judgment & insight intact. Lymphatic No Lymphadenopathy. Musculoskeletal : Cervical Spine Motor strength in the deltoid and biceps: Normal right side. Normal Left side Motor strength biceps and the wrist extensors: Normal right side . Normal left side Motor strength in the triceps muscle: Normal right side. Normal left side Deep tendon reflexes: Normal at the biceps. Normal at Brachioradialis. Normal at triceps Cervical facet loading test: positive bilaterally Spurling test: positive bilaterally Neck distraction test: positive bilaterally Popeye sign: positive bilaterally Lumbar spine Motor strength lower extremities ,thigh and legs 5/5 Right side , 5/5 Left side Deep tendon reflexes : Normal Knee Jerk. Normal Ankle Jerk Vertebral body tenderness over Lumbar facet Loading Test: positive Right / positive Left L4-L5, L5-S1 with mild jump reflex Range of motion of the lumbar spine Flexion 30 degrees, extension 10 degrees Straight Leg Raise test: Left/ Right positive at degree Latanya test: positive right / positive left. Severe tenderness over the Sacroiliac joint on the Right / Left sides Gaenslen test: positive bilaterally Seated flexion test: positive bilaterally. Imaging: MRI of the lumbar spine without contrast from 07/19/20 reviewed. Assessment/ Plan : Recommendation of bilateral RFA L3 to L5. Risks, benefits of procedure discussed and patient verbalized understanding. Protocol for discontinuation of Aspirin discussed. All questions answered. I have spent greater than 50 minutes on patient care today. Dr Padron was available by phone for the evaluation of this patient. The time was used to review the medical records including relevant urine studies and Prescription history (MAPs), review of the available imaging, evaluation and examination of the patient, coordination of care with the medical staff and if applicable referring physicians, as well as creation of the medical record PQRS Measure Charge Sheet PQRS Narrative: Smoking Status Never smoker Pain Intensity [Lower Back] 4 Scale Used Numeric (1 - 10) Hx Alcohol Use (MH) No Home Medications: Ambulatory Orders Calcium Carbonate/Vitamin D3 [Caltrate 600 Plus D3 Tablet] 1 tab PO BID 06/15/14 Multivit-Minerals/Folic Acid [One Daily Womens 50 Plus Tab] 1 tab PO DAILY 06/15/14 amLODIPine BESYLATE [Norvasc] 10 mg PO DAILY 06/15/14 atenoloL [Tenormin] 50 mg PO DAILY 06/15/14 Losartan Potassium 100 mg PO DAILY 03/23/18 Acetaminophen Tab [Tylenol] 650 mg PO Q4HR PRN tab 02/19/20 Alendronate Sodium [Fosamax] 70 mg PO MO 07/08/21 Aspirin [Adult Low Dose Aspirin EC] 81 mg PO DAILY 07/08/21 Fish Oil/Dha/Epa [Fish Oil 1,200 mg Fish Oil] 1 each PO DAILY 07/08/21
[2021-07-10 12:37] VITALS: BP 136/76; PULSE 58; RESP 18; TEMP 98
== END ==
LOC: PNWHC3 08:16
PROVIDERS: ATTEND Physician Assistant Medical
DX: M51.26 Other intervertebral disc displacement, lumbar region (principal); M43.16 Spondylolisthesis, lumbar region; M47.816 Spondylosis without myelopathy or radiculopathy, lumbar region; M48.061 Spinal stenosis, lumbar region without neurogenic claudication; I10 Essential (primary) hypertension; E78.5 Hyperlipidemia, unspecified
CPT/HCPCS: 99202

== ENCOUNTER 2021-08-21 08:58 | Day surgery (SDC) | payer MEDICARE ==
[2021-08-20 11:57] VITALS: BMI 26.9
[~2021-08-21 08:58] MED LIST: LACTATED RINGERS 1,000 ML IV SCH; LIDOCAINE 1% (10MG/ML) FOR IV START INTRADERMA PRN
[2021-08-21 09:19] VITALS: TEMP 97.8
[2021-08-21] MEDS ORDERED: fentaNYL (PF) 50 MCG/ML 2 ML AMP ONE (09:54)
[2021-08-21] MEDS ORDERED: methylPREDNISolone ACETATE 40 MG/ML 1 ML VIAL ONE (09:54)
[2021-08-21] MEDS ORDERED: ROPIVACAINE 5MG/ML 20ML VIAL ONE (09:54)
[2021-08-21] MEDS ORDERED: MIDAZOLAM 2 MG/2 ML VIAL ONE (09:54)
--- NOTE | 2021-08-21 10:25 | P.PCN ---
Date of Procedure: 08/21/21 Procedure(s) Performed: PREOPERATIVE DIAGNOSIS: 1-Lumbar Spondylosis with Facet Arthropathy without myelopathy. 2- Lumber degenerative disc disease. POSTOPERATIVE DIAGNOSIS: 1- Lumbar Spondylosis with Facet Arthropathy without myelopathy. 2- Lumber degenerative disc disease. PROCEDURES : Bilateral Radiofrequency thermocoagulation, L3 , L4 , and L5 medial branch, with fluoroscopic guidance (fluoroscopy images available in the radiology department) ( to denervate the facet joint at bilateral L4-5 ,and L5-S1 levels ). ANESTHESIA: Moderate sedation with intravenous versed 1 mg and fentaneyl 50 mcg, and local infiltration with Ropivacaine 0.5 % . EBL: Minimal PROCEDURE INDICATION: The patient with low back pain secondary to lumbar facet arthropathy who had more than 50% relief of her pain with previous diagnostic lumbar medial branch block with bupivacaine. PROCEDURE DESCRIPTION / TECHNIQUE: The patient was seen and identified in the preoperative area. Risks, benefits, complications, including but not limited to risk of infection ,bleeding , allergic reactions to the medications and no complete pain releife , and alternatives were discussed with the patient, the patient agreed to proceed with the procedure and signed the consent. IV was st arted. Vital signs remained stable throughout the procedure. Patient was taken to the OR and time out was completed. The patient was placed in the prone position on the procedure table. The lumber area was prepped and draped in the usual sterile fashion. . Vital signs were closely monitored during the procedure .IV sedation was used during the procedure to decrease patients anxiety. Using AP and then oblique fluoroscopy, the ``eye of the Ivan dog corresponding to the connection between the superior and transverse articular processes of right L3, L4, and L5 were identified, marked, and localized with 1% lidocaine. Subsequently, a 18 [id number] radiofrequency cannula with a 10- mm active tip was advanced guided by fluoroscopy to each of the``eyes of the Ivan dog at right L3, L4, and L5. Each site then underwent sensory testing at 50 Hz and 0 to 1 volt and motor testing at 2.5 Hz and 0 to 3 volt with local stimulation, but no radicular symptoms down the legs. Thereafter each sites underwent radiofrequency thermocoagulation at 80 degrees celsius for 90 seconds after injecting 0.5 ml of PF Ropivacaine 1ml, then after the thermocoagulation done , 1 ml of the block solution containing Depo-Medrol 20 mg and 3 ml of Ropivacaine 0.5% was injected at the right L3 , L4 , and L5 , levels after negative aspiration of CSF and blood and with no paresthesias. Cannulas were retracted while injecting lidocaine 1% until the needle is out. The same procedure was repeated at the level of Left L3, L4, and L5 levels. At the end of the procedure, the skin was cleansed and bandages were applied. COMPLICATIONS: No acute complications. DISPOSITION / PLANS: The patient was placed in a supine position and transferred to the recovery area in a stable condition for observation and was discharged from the recovery room after meeting discharge criteria. Home discharge instructions given to the patient by the staff. The patient was reexamined prior to discharge. The patient will schedule a follow up in the clinic in 2-4 weeks.
[2021-08-21] MEDS ORDERED: IV FLUID CONTINUATION 1,000 ML IV ONE (10:31)
[2021-08-21 10:34] VITALS: PULSE 55; RESP 16
[2021-08-21 10:55] VITALS: BP 158/86
--- NOTE | 2021-08-21 10:59 | FL ---
EXAMINATION TYPE: FL guided pain mgmt statistic DATE OF EXAM: 08/21/2021 HISTORY: Fluoroscopy time 15 seconds of fluoroscopy provided. IMPRESSION: 1. Fluoroscopy time.
== END 2021-08-21 11:26 | disposition home or self-care (01) ==
LOC: ORPAIN 08:58
PROVIDERS: ATTEND Specialist
DX: M47.816 Spondylosis without myelopathy or radiculopathy, lumbar region (principal); M51.36 Other intervertebral disc degeneration, lumbar region
CPT/HCPCS: 64635; 64636; J2250; J1030; J3010; J2795; 99152; 99153

== ENCOUNTER → 2021-10-14 | Outpatient (CLI) | payer MEDICARE ==
--- NOTE | 2021-10-15 11:49 | MM ---
Reason for Exam: Screening (asymptomatic). Last mammogram was performed 1 year(s) and 9 month(s) ago. Patient History: Menarche at age 14. First Full-Term at age 23. Left ovary removed at age 56. Right ovary removed at age 56. Hysterectomy at age 56. Postmenopausal. Risk Values: Lurdes 5 year model risk: 1.5%. NCI Lifetime model risk: 2.8%. Prior Study Comparison: 10/19/2017 Bilateral Screening Mammogram, [facility]. 10/28/2017 Right Diagnostic Mammogram, [facility]. 01/03/2020 Bilateral Screening Mammogram, [facility]. Tissue Density: There are scattered fibroglandular densities. Findings: Analyzed By CAD. Benign-appearing bilateral axillary lymph nodes are redemonstrated. There are scattered and regional benign appearing round and linear calcifications redemonstrated. There is no suspicious group of microcalcifications or new suspicious mass in either breast. Overall Assessment: Benign, BI-RAD 2 Management: Screening Mammogram of both breasts in 1 year. A clinical breast exam by your physician is recommended on an annual basis and results should be correlated with mammographic findings. Electronically signed and approved by: Sarthak Key M.D.
== END | disposition home or self-care (01) ==
LOC: RADMAMWWP 08:48
PROVIDERS: ATTEND Internal Medicine
DX: Z12.31 Encounter for screening mammogram for malignant neoplasm of breast (principal); Z78.0 Asymptomatic menopausal state
CPT/HCPCS: 77067

== ENCOUNTER → 2022-11-17 | Outpatient (CLI) | payer MEDICARE ==
--- NOTE | 2022-11-18 15:23 | MM ---
Reason for Exam: Screening (asymptomatic). Last mammogram was performed 1 year(s) and 1 month(s) ago. Patient History: Menarche at age 14. First Full-Term at age 23. Left ovary removed at age 56. Right ovary removed at age 56. Hysterectomy at age 56. Postmenopausal. Risk Values: Lurdes 5 year model risk: 1.5%. NCI Lifetime model risk: 2.5%. Prior Study Comparison: 10/28/2017 Right Diagnostic Mammogram, [facility]. 01/03/2020 Bilateral Screening Mammogram, [facility]. 10/14/2021 Bilateral MG screening mammo w CAD, [facility]. Tissue Density: There are scattered fibroglandular densities. Findings: Analyzed By CAD. Pattern appears symmetrical and stable. Benign calcifications are present bilaterally. A mole was marked in the left breast. No suspicious groups of microcalcifications, spiculated or lobular masses, architectural distortion or other secondary signs of malignancy are mammographically apparent. Overall Assessment: Benign, BI-RAD 2 Management: Screening Mammogram of both breasts in 1 year. A negative mammogram report should not preclude additional follow up of suspicious palpable abnormalities. Patient should continue monthly self breast exam. A clinical breast exam by your physician is recommended on an annual basis and results should be correlated with mammographic findings. Electronically signed and approved by: Kermit Vail D.O. Radiologis
== END | disposition home or self-care (01) ==
LOC: RADMAMWWP 09:16
PROVIDERS: ATTEND Family Medicine
DX: Z12.31 Encounter for screening mammogram for malignant neoplasm of breast (principal); Z78.0 Asymptomatic menopausal state
CPT/HCPCS: 77067